=== PATIENT | female | born 1950 | race Caucasian/White ===

== ENCOUNTER 2017-10-26 06:55 | Inpatient (IN) | payer MEDICARE, SELFPAY ==
[2017-10-12 10:39] VITALS: BMI 42.4
[2017-10-26] VITALS (15 sets, daily range): BP systolic 113–138; BP diastolic 40–78; PULSE 66–88; RESP 8–18; TEMP 36–36.6; O2SAT 92–99; BMI 40.7
[2017-10-26] MEDS: LACTATED RINGERS 1,000 ML 42 ML IV ×2 (07:48→10:16)
--- NOTE | 2017-10-26 07:52 | PM.PREOP ---
Pre-operative Note Interval Note Pre-op Check: History & Physical Reviewed by Physician, Exam Performed and History & Physical exam performed today
--- NOTE | 2017-10-26 08:00 | DI.RAD.S_ITS ---
PROCEDURE: XR LUMBAR SPINE 2-3V INDICATIONS: L5-S1 TLIF TECHNIQUE: 2 views of the lumbar spine were acquired. COMPARISON: [facility], , L-SPINE 2-3 VIEWS, 04/28/2012, 9:00. [facility], , PELVIS 1 OR 2 VIEWS, 04/28/2012, 9:00. [facility], , L-SPINE 2-3 VIEWS, 04/26/2007, 9:58. [facility], , L-SPINE 2-3 VIEWS, 04/30/2016, 9:43. FINDINGS: Intra-operative image demonstrating posterior fixation from L3-S1. Due to technical limitations, fine detail evaluation is limited. Hardware appears grossly intact. Evaluation of alignment is limited. IMPRESSION: Limited intra-operative posterior fusion. Dictated by: Ute Hart M.D. on 10/26/2017 at 12:25 Approved by: Ute Hart M.D. on 10/26/2017 at 12:29
[2017-10-26] MEDS: CEFAZOLIN 2 GM/100 ML FROZ.PIGGY IV ×3 (08:04→23:54)
--- NOTE | 2017-10-26 08:53 | SUR.OPER ---
Prone on spine table, head in foam head support, padded chest and pelvic supports, gel pad at knees, lower legs supported by pillows; nipples, genitalia and toes free of pressure, arms secured on foam padded arm boards at <90 degrees abduction. Tape over blanket at thigh secured to table.
[2017-10-26] MEDS: BUPIVACAINE LIPOSOME 266 MG/20 ML VIAL INJ (09:03)
[2017-10-26] MEDS: BUPIVACAINE 0.25% W/ EPI VIAL 30 ML INJ (09:03)
--- NOTE | 2017-10-26 11:38 | P.OP_ITS ---
Operative Date/Time/Diagnoses Date of procedure: 10/26/17 Time of procedure: 08:29 Pre-op diagnosis: 1. Hx of L3-4, L4-5 TLIF 2. L5-S1 spondylosis with radiculopathy 3. L3-4, L4-5, L5-S1 spinal stenosis with radiculopathy 4. Possible non-union L3-4, L4-5 Post-op diagnosis: same Procedure & Clinicians Procedure: 1. L5-S1 posterolateral and posterior interbody fusion 2. L5-S1 posterior interbody cage placement 3. L3-4, L4-5 posterior segmental instrumentation removal 4. L3-4, L4-5 revision jaspreet-laminectomy with exploration of fusion 5. L3-4, L4-5, L5-S1 posterior segmental instrumentation with pedicle screw placement 6. L3-4, L4-5 posterolatearl fusion 7. [place] of bone marrow from iliac crest through a separate incision 8. Utilization of microsurgical technique and operating microscope Same procedure as scheduled: Yes Indications: Patient has been having chronic back pain and worsening lumbar radiculopathy. Patient had a L3-4, L4-5 fusion 18 months ago. She was doing well until about 6 months ago. Patient failed multiple conservative management with worsening pain weakness and numbness in her lower extremity. Patient has been having difficulty performing activity of daily living. After discussing risks benefits of treatment options, patient elected proceed with surgery. Surgeon: Danielle Ni Security Field Supervisor: Merary [place] Click Yes if Unassisted: No Anesthesia Type: General Operative Notes Closure Type: primary Specimen(s): none sent Applied: catheter Estimated Blood Loss (mL): 150 Blood products transfused: none Procedure in detail: Patient was seen in the preoperative area. Risks and benefits of the surgery was discussed with the patient. Informed consent was obtained from the patient and placed in the chart. Surgical site was marked. Patient was taken to the operative room. General anesthesia was administered. Prophylactic antibiotic was given to the patient less than 30 min before the incision was made. Patient was placed into a prone position on the Cesar table. Patient's back was then prepped and draped in the sterile fashion. Time- out was performed at this time. Using patient's previous scar incision was made over the L3-4 L4-5 L5-S1 interval on the left side. Fascia was incised in line with skin incision. Patient's previously placed hardware over the L3-4 L4-5 level was identified by dissecting down to the level the hardware using a Bovie and a Balderas. The locking caps which was removed using globus screwdriver. The locking bryon was then removed from the tulips of the pedicle screws using a Huber. The pedicle screws were then removed using the screwdriver. The screws were found to have good purchase. The Globus and MARS retractors was then placed into the wound and docked onto the L5 lamina using C-arm guidance. Using microsurgical technique and operating microscope a laminectomy facetectomy was performed by removing the L5 lamina and the L5-S1 facet. The disc space at L5-S1 level was identified next. And a total diskectomy was performed at L5-S1 level. The endplates were decorticated using a rasp and shaver. The total diskectomy and decortication was performed at L5-S1 level in order to to accomplish a L5-S1 fusion. The local bone from the laminectomy and facetectomy was saved for local bone grafting. After the total diskectomy and decortication was completed, Globus viacell bone graft material was combined with local bone that was harvested earlier. At this time, a separate skin is incision was made over the iliac crest. A Jamshidi needle was inserted into the iliac crest through a separate skin incision. 5 cc of bone marrow aspiration was obtained through the separate skin incision using a Jamshidi needle from the iliac crest. The bone marrow aspiration was combined with local bone and the via cell bone grafting material. The bone grafting material was placed into the L5-S1 interbody space along with a expandable cage. The cage was expanded to its maximum height using the torque limiting screwdriver. The MARs retractor was then repositioned over the L3 and L4 lamina on the left side. A revision hemilaminectomy was performed on the left side by removing epidural scar tissue, additional lamina, and ligamentum flavum in order to decompress the lateral recess and also exploring the fusion mass. Upon stressing the fusion mass at L3-4 L4-5 level, there was visible motion confirming a pseudoarthrosis. A decision was made to perform posterolateral fusion at L3-4 L4-5 level. At this time a mirror image incision was made on the right side. The fascia was incised in line with the skin incision. Patient's previously placed hardware on the left side was then removed in the same fashion as it was on the left side. Globus MARS retractor was inserted and docked onto the L3-4 L4-5 L5-S1 posterolateral gutter. Using the power drill, posterior-lateral decortication was performed at L3-4 L4-5 L5-S1 level until bleeding cortical bone was identified. The remaining bone grafting material was placed into the L3-4-L4-5 L5-S1 posterior lateral gutter he order to accomplish posterolateral fusion at the L3-4-L4-5 L5-S1 level. Using the double C-arm technique, pedicle screws were placed into the L3, L4, L5 and S1 pedicles bilaterally. This was done by placing the Jamshidi needle into the pedicles, then placing the guidewires over the Jamshidi needle, and finally placing the cannulated screws over the guidewires bilaterally. After the pedicle screws were placed, 2 titanium rods was locked into the heads of the pedicle screws using locking caps and torque limiting screwdriver. Total 8 pedicle screws were placed. After all the hardware was placed, and confirmed with AP and lateral C-arm imaging, the wound was then irrigated with sterile normal saline and packed with Ray-Jen gauze for 3 min to accomplish hemostasis. After the gauze was removed the deep fascia was closed with #1 Vicryl suture. The subcutaneous layer was closed with 2-0 Vicryl. The skin was closed with skin polo. Patient tolerated the procedure well. There were no complications. Complications: none Condition: stable Disposition: Acute Care Plan for aftercare: Admit to inpatient hospital
[2017-10-26] MEDS: HYDROMORPHONE 2 MG INJ 0.5 MG IV ×2 (11:43→11:48)
--- NOTE | 2017-10-26 12:02 | SUR.PHASEI ---
stable pacu stay report called to marilee steele, no nausea, dressing remained c/d/i.
[2017-10-26] MEDS: SODIUM CHLORIDE 0.9% 1,000 ML 100 ML IV ×2 (12:37→22:08)
--- NOTE | 2017-10-26 12:45 | PC.NURSE ---
Pt to floor 1220, alert, oriented rates back pain 5/10. CMS+ bulky dressing to back intact, scd's placed. Denies nausea, taking fluids, moya patent.
[2017-10-26] MEDS: OXYCODONE IR 5 MG TABLET 10 MG PO ×3 (13:09→23:58)
--- NOTE | 2017-10-26 14:50 | PT.IIE ---
Current Diagnoses Other spondylosis with radiculopathy, lumbar region (10/26/17) Spinal stenosis, lumbar region without neurogenic claudication (10/26/17) Arthrodesis status (10/26/17) Surgery Performed Operation Date: 10/26/17 07:45 Actual Procedures p L5-S1 TLIF, L3-4,L4-5 Hardware Removal & L3-4,L4-5,L5-S1 PSF w/Instru - Danielle Ni MD Surgical History (Last Updated 10/12/17 @ 11:27 by Irasema Kiser, RN) History of colonoscopy (Acute) History of tonsillectomy and adenoidectomy (Acute) Previous back surgery (Acute ~2016) Medical History (Last Updated 10/12/17 @ 11:27 by Irasema Kiser, FLORENCIA) Anal fissure (Acute) Bruises easily (Acute) Condyloma (Acute) Hepatitis C (Acute) Impaired vision (Acute) Roro-implantitis, dental (Acute) Postmenopausal (Acute) Physical Therapy Inpatient Evaluation/Re-Eval M1 PT/OT-IP Prior Functional Status Start: 10/26/17 17:31 Freq: NEEDED Status: Active Protocol: Document 10/26/17 14:50 AB (Rec: 10/26/17 17:43 AB [id number]) Medical Review Prior Functional Status Medical History Reviewed Yes Communication able to make needs known Mobility and Gait pt stated that she is modified independent with all mobilities and ambulated without AD indoors but uses SPC outdoors/uneven surfaces. Social History Household Members spouse Living Arrangements House Number of Floors (Floors) One Floor Number of Stairs To Enter/Railing? 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 Employment Status Retired Additional Social History Comment has 1 step to get into bed; has a writing manager but stated she needs a new one; stated that she can put a shower chair in her tub pt also will borrow FWW from the [employer] M2 PT-IP Current Condition Start: 10/26/17 17:31 Freq: NEEDED Status: Active Protocol: Document 10/26/17 14:50 AB (Rec: 10/26/17 17:43 AB [id number]) Physical Therapy Current Condition Current Condition Evaluation Date 10/26/17 Treatment Diagnosis s/p TLIF and laminectomy; difficulty in walking Onset Date 10/26/17 Precautions Lumbar Precautions Log Roll No Twisting Limit Bending Lifting Restriction of 10 lbs Gait Belt above Incisional Area M3 PT-IP Subjective Start: 10/26/17 17:31 Freq: NEEDED Status: Active Protocol: Document 10/26/17 14:50 AB (Rec: 10/26/17 17:43 AB [id number]) Subjective Physical Therapy Visit Type Type Initial Evaluation Visit Start Time 14:50 Visit Stop Time 15:55 Total Visit Minutes 45 Notes pt initially refusing but agreed to do therapy after a few minutes; checked back on pt and agreed to get up Number of INSPECTOR SHELLS Visits 0 Therapy Pain Assessment Pain When Pain Assessed At Rest Pain Present Pain Present Pain Reported Location Back Intensity 6 Scale Used Numeric (1 - 10) Pain Management Techniques Re-positioning Timing of Activity with Medications M4 PT-IP Mobility and Gait Start: 10/26/17 17:31 Freq: NEEDED Status: Active Protocol: Document 10/26/17 14:50 AB (Rec: 10/26/17 17:43 AB [id number]) PT-Bed Mobility Assessment Rolling Type of Rolling Roll to Left Level of Assist Moderate Assistance Supine to Sit Supine to Sit Maximum Assistance 1 Person Assistance Sit to Supine Sit to Supine Minimal Assistance PT-Transfer Assessment Sit to and From Stand Sit to and from Stand Minimal Assistance Equipment Transfer Assistive Device Gait Belt Front Wheeled Walker Orthotic/Prosthetic Devices or Brace: No Gait Assessment Gait Gait Assistance Required: Minimum Assistance Distance (Feet) (feet) 100 Able to Maintain Weight Bearing Status Yes During Gait Assistive Devices Assistive Device Gait Belt Front Wheeled Walker Orthotic/Prosthetic Devices or Brace: No Gait Deviations General Gait Pattern Decreased Stride Length Decreased Feet Clearance Factors Limiting Gait Function Factors Limiting Gait Function Decreased Activity Tolerance Decreased Strength Pain Poor Balance Poor Safety Awareness PT-Balance Assessment Sitting Balance and Reactions Static Sitting Balance Ability Good Dynamic Sitting Balance Ability Good Standing Balance and Reactions Static Standing Balance Ability Fair Dynamic Standing Balance Ability Fair Device Used FWW M5 PT-IP Objective Assessments Start: 10/26/17 17:31 Freq: NEEDED Status: Active Protocol: Document 10/26/17 14:50 AB (Rec: 10/26/17 17:43 AB [id number]) Orientation Orientation/Cognition Level of Alertness Alert Orientation Name Age Birthday Month Date Year Day of Week Place Situation Safety Awareness Decreased Safety Awareness Memory Description Short Term Impaired Gross Range of Motion Lower Extremity ROM Assessment Within Functional Limits Strength Lower Extremity Strength Assessment Within Functional Limits M6 PT-IP Treatment Start: 10/26/17 17:31 Freq: NEEDED Status: Active Protocol: Document 10/26/17 14:50 AB (Rec: 10/26/17 17:43 AB [id number]) Physical Therapy Treatment Education Education Provided Precautions Weight Bearing Status Post-Op Packet Safety M7 PT-IP Assessment and Plan Start: 10/26/17 17:31 Freq: NEEDED Status: Active Protocol: Document 10/26/17 14:50 AB (Rec: 10/26/17 17:43 AB [id number]) PT Summary Assessment and Plan Potential Rehabilitation Potential Good Status of Condition at Evaluation Stable Summary Impairments Pain ROM Strength Balance Coordination Sensation Tone Cognition Bed Mobility Transfers Gait Activity Tolerance Assessment Summary pt requires max A with bed mobility but is doing well with ambulation. pt plans to go home with spouse to assist her. pt will likely improve during hospital stay and caregiver training, stair training will be conducted. Goals Bed Mobility Goal Standby Assistance Transfer Goal Standby Assistance Front Wheeled Walker Gait Goal Standby Assistance Front Wheel Walker Gait Distance 150 Other Goals uup/down 3 steps without rail using SPC Days to Meet Goals 3 Frequency of Treatment Frequency Of Treatment Twice a Day Treatment Plan Physical Therapy Treatment Plan Bed Mobility Training Transfer Training Gait Training Therapeutic Exercise Balance Retraining Post Op Education Discharge Planning Hot or Cold Pack Neuromuscular Re-ed Coordination Retraining Manual Therapy Recommendations To Nursing Amount of Assist Needed 1 Person Assist Discharge Recommendations PT Discharge Recommendations Home with Assistance
[2017-10-26] MEDS: HYDROMORPHONE 0.5 MG INJ IV ×3 (14:54→21:58)
--- NOTE | 2017-10-26 17:09 | PC.NURSE ---
[place]ba is Ox3, ambulated in hallway with PT assist. After back into bed, reported pain starting to go up again, rating at 9/10. Assisted her to reposition in bed with knees elevated by 2 pillows & bed controls. Then discussed pain med options as it was too early for more IV Dilaudid, medicated with 2 tabs Oxycodone. She is smiling, conversive with staff. Said this is so much better than last time -- I was in terrible pain. Sitting up eating meal now. I instructed her to call me if Oxycodone not effective, she agrees to this plan.
[2017-10-26] MEDS: DOCUSATE 100 MG CAPSULE PO (21:58)
[2017-10-26] MEDS: SENNOSIDES 8.6 MG TABLET 17.2 MG PO (21:58)
[2017-10-26] MEDS: MAGNESIUM OXIDE 400 MG TABLET PO (21:58)
[2017-10-26] MEDS: hydrOXYzine pamoate 25 MG CAPSULE PO (23:58)
--- NOTE | 2017-10-27 00:20 | PC.NURSE ---
Addendum entered by Ember Garber R.N. 10/27/17 05:47: Patient slept entire night. States pain is 7/10 this morning so medicated with Oxycodone + Vistaril but continues to decline ice pack. Repositioning self. Refused to have SCD's off as per protocol. Original Note: Alert and oriented and very talkative. Breath sounds CTA with RA sat of 96%. HRR. Denies nausea. BT present and states she has been passing flatus. Indwelling catheter is patent with clear yellow urine in bag. Is able to turn self but prefers to lie on back due to bone spurs. Dressing to back is CDI. Does complain of 6/10 pain so medicated with Oxycodone + Vistaril but declined offer of ice pack. CMS intact except for chronic neuropathy in left lateral 3 toes. Trace bilateral LE edema which she states is also chronic. Wearing bilateral foot SCD's. Fall risk score is high and bed alarm is activated.
[2017-10-27 05:00] VITALS: BP 130/64; PULSE 80; RESP 18; TEMP 36.6; O2SAT 94
[2017-10-27 05:34] LABS: Hematocrit 35.2 % (36-46); Hemoglobin 12.1 g/dL (12.0-16.0)
[2017-10-27] MEDS: OXYCODONE IR 5 MG TABLET 10 MG PO (05:43)
[2017-10-27] MEDS: hydrOXYzine pamoate 25 MG CAPSULE PO ×3 (05:43→22:42)
[2017-10-27 07:15] VITALS: BP 111/53; PULSE 86; RESP 16; TEMP 36.6; O2SAT 98
--- NOTE | 2017-10-27 08:18 | P.PN_ITS ---
Subjective Date Patient Seen: 10/27/17 Time Patient Seen: 08:18 Interval history: POD #1 s/p L3-4, L4-5 HWR and L5-S1 TLIF with Dr. Ni. She has had issues with pain control. Has had no previous issues taking steroids besides flushing. Prior to surgery she was taking Oxycodone 2.5 mg daily. She has been ambulating in her room. She has a [place] in place. Complains of left- sided pain. Exam Vital Signs (past 8 hours): - 10/27/17 05:00 Temperature 97.9 F Pulse Rate 80 Respiratory Rate 18 Blood Pressure 130/64 H Pulse Oximetry 94 Oxygen Delivery Method Room Air Oxygen Flow Rate 0 Narrative Exam Narrative: Patient lying in bed in no acute distress. She is alert and oriented x3. She is able to actively dorsiflex plantar flex. Sensation intact to light touch throughout bilateral lower extremities. Calves are soft, compressible, nontender bilaterally. Objective Labs Result Diagrams: 10/27/17 05:16 Labs: Laboratory Results - last 24 hr 10/27/17 05:16 Hgb 12.1 Hct 35.2 L Assessment & Plan Post-op (1) S/P lumbar fusion: Current Visit: Yes Status: Acute Postoperative Procedures Operation Date: 10/26/17 07:45 Actual Procedures Side Surgeon p L5-S1 TLIF, L3-4,L4-5 Hardware Removal & L3-4,L4-5,L5-S1 PSF w/Instru Danielle Ni MD POD #1 s/p L3-4, L4-5 HWR and L5-S1 TLIF with Dr. Ni. Will start on Decadron 10 mg one time dose today. Changed pain medication to oxycodone 10 mg for moderate pain, and oxycodone 15 mg for severe pain. She is requesting her supplement CoQ10, I placed an order but unsure if pharmacy will be able to supply this for her, she mentioned she can get some if not. Will DC [place] today as she is mobilizing. Plan to discharge home in next 1-2 days once mobilizing safely with adequate pain control. Time Spent With Patient less than 15 minutes Quality VTE Deep Vein Thrombosis/Pulmonary Embolism Present on Admission: No
[2017-10-27] MEDS: DEXAMETHASONE 4 MG TABLET 10 MG PO (09:01)
[2017-10-27] MEDS: FISH OIL 1,000 MG CAPSULE 1000 MG PO (09:01)
[2017-10-27] MEDS: DOCUSATE 100 MG CAPSULE PO ×2 (09:01→19:25)
[2017-10-27] MEDS: ACETAMINOPHEN 325 MG TABLET PO ×2 (09:01→12:13)
[2017-10-27] MEDS: OXYCODONE IR 5 MG TABLET 15 MG PO ×5 (09:01→22:42)
[2017-10-27] MEDS: SODIUM CHLORIDE 0.9% FLUSH 10 ML IV (09:05)
--- NOTE | 2017-10-27 09:20 | PT.IPTN ---
Current Diagnoses Other spondylosis with radiculopathy, lumbar region (10/26/17) Spinal stenosis, lumbar region without neurogenic claudication (10/26/17) Arthrodesis status (10/26/17) Surgery Performed Operation Date: 10/26/17 07:45 Actual Procedures p L5-S1 TLIF, L3-4,L4-5 Hardware Removal & L3-4,L4-5,L5-S1 PSF w/Instru - Danielle Ni MD Physical Therapy Treatment Note M2 PT-IP Current Condition Start: 10/26/17 17:31 Freq: NEEDED Status: Active Protocol: Document 10/26/17 14:50 AB (Rec: 10/26/17 17:43 AB [id number]) Physical Therapy Current Condition Current Condition Evaluation Date 10/26/17 Treatment Diagnosis s/p TLIF and laminectomy; difficulty in walking Onset Date 10/26/17 Precautions Lumbar Precautions Log Roll No Twisting Limit Bending Lifting Restriction of 10 lbs Gait Belt above Incisional Area M3 PT-IP Subjective Start: 10/26/17 17:31 Freq: NEEDED Status: Active Protocol: Document 10/27/17 09:20 AB (Rec: 10/27/17 11:59 AB [id number]) Subjective Physical Therapy Visit Type Type Treatment Note Visit Start Time 09:20 Visit Stop Time 09:48 Total Visit Minutes 28 Number of DIRECTOR HOSPICE OPERATIONS Visits 0 Physical Therapy Visit Comments Patient Comments pt c/o increase back pain Therapy Pain Assessment Pain When Pain Assessed At Rest Pain Present Pain Present Pain Reported Location Back Intensity 8 Scale Used Numeric (1 - 10) Pain Management Techniques Apply Cold Timing of Activity with Medications M4 PT-IP Mobility and Gait Start: 10/26/17 17:31 Freq: NEEDED Status: Active Protocol: Document 10/27/17 09:20 AB (Rec: 10/27/17 11:59 AB [id number]) PT-Bed Mobility Assessment Rolling Type of Rolling Log Rolling Level of Assist Standby Assistance Supine to Sit Supine to Sit Standby Assistance 1 Person Assistance Bedrails Sit to Supine Sit to Supine Standby Assistance 1 Person Assistance Bedrails PT-Transfer Assessment Sit to and From Stand Sit to and from Stand Contact Guard Assistance Equipment Transfer Assistive Device Gait Belt Front Wheeled Walker Orthotic/Prosthetic Devices or Brace: No Comments Mobility Comments pt ambulated towards the sink using FWW CGA and was able to maintain standing using FWW for support SBA while doing grooming Gait Assessment Gait Gait Assistance Required: Contact Guard Assist Distance (Feet) (feet) 100 Able to Maintain Weight Bearing Status Yes During Gait Assistive Devices Assistive Device Gait Belt Front Wheeled Walker Orthotic/Prosthetic Devices or Brace: No Gait Deviations General Gait Pattern Decreased Stride Length Decreased Feet Clearance Factors Limiting Gait Function Factors Limiting Gait Function Decreased Activity Tolerance Decreased Strength Pain Poor Balance Poor Safety Awareness M5 PT-IP Objective Assessments Start: 10/26/17 17:31 Freq: NEEDED Status: Active Protocol: Document 10/26/17 14:50 AB (Rec: 10/26/17 17:43 AB [id number]) Orientation Orientation/Cognition Level of Alertness Alert Orientation Name Age Birthday Month Date Year Day of Week Place Situation Safety Awareness Decreased Safety Awareness Memory Description Short Term Impaired Gross Range of Motion Lower Extremity ROM Assessment Within Functional Limits Strength Lower Extremity Strength Assessment Within Functional Limits M6 PT-IP Treatment Start: 10/26/17 17:31 Freq: NEEDED Status: Active Protocol: Document 10/27/17 09:20 AB (Rec: 10/27/17 11:59 AB [id number]) Physical Therapy Treatment Education Education Provided Precautions Weight Bearing Status Post-Op Packet Safety M7 PT-IP Assessment and Plan Start: 10/26/17 17:31 Freq: NEEDED Status: Active Protocol: Document 10/27/17 09:20 AB (Rec: 10/27/17 11:59 AB [id number]) PT Summary Assessment and Plan Potential Rehabilitation Potential Good Summary Impairments Pain ROM Strength Balance Coordination Sensation Tone Cognition Bed Mobility Transfers Gait Activity Tolerance Progress Towards Goals Progressing Toward Goals Assessment Summary pt c/o increase pain today. pt progressing with mobility and spouse will assist pt at home. Pt refused to do stair climbing this morning but will try to attempt this afternoon . Goals Bed Mobility Goal Standby Assistance Transfer Goal Standby Assistance Front Wheeled Walker Gait Goal Standby Assistance Front Wheel Walker Gait Distance 150 Other Goals up/down 3 steps without rail using SPC. Days to Meet Goals 3 Frequency of Treatment Frequency Of Treatment Twice a Day Treatment Plan Physical Therapy Treatment Plan Bed Mobility Training Transfer Training Gait Training Therapeutic Exercise Balance Retraining Post Op Education Discharge Planning Hot or Cold Pack Neuromuscular Re-ed Coordination Retraining Manual Therapy Recommendations To Nursing Amount of Assist Needed 1 Person Assist Discharge Recommendations PT Discharge Recommendations Home with Assistance
[2017-10-27 11:20] VITALS: BP 124/59; PULSE 76; RESP 18; TEMP 37; O2SAT 99
--- NOTE | 2017-10-27 11:38 | OT.IP.EVAL ---
Current Diagnoses Other spondylosis with radiculopathy, lumbar region (10/26/17) Spinal stenosis, lumbar region without neurogenic claudication (10/26/17) Arthrodesis status (10/26/17) Surgery Performed Operation Date: 10/26/17 07:45 Actual Procedures p L5-S1 TLIF, L3-4,L4-5 Hardware Removal & L3-4,L4-5,L5-S1 PSF w/Maria De Jesus Ni MD Past Medical History (Last Updated 10/12/17 @ 11:27 by Irasema Kiser, RN) Anal fissure (Acute) Bruises easily (Acute) Condyloma (Acute) Hepatitis C (Acute) Impaired vision (Acute) Roro-implantitis, dental (Acute) Postmenopausal (Acute) Surgical History (Last Updated 10/12/17 @ 11:27 by Irasema Kiser, RN) History of colonoscopy (Acute) History of tonsillectomy and adenoidectomy (Acute) Previous back surgery (Acute ~2016) Occupational Therapy Inpatient Evaluation/Re-Eval M1 PT/OT-IP Prior Functional Status Start: 10/26/17 17:31 Freq: NEEDED Status: Active Protocol: Document 10/26/17 14:50 AB (Rec: 10/26/17 17:43 AB [id number]) Medical Review Prior Functional Status Medical History Reviewed Yes Communication able to make needs known Mobility and Gait pt stated that she is modified independent with all mobilities and ambulated without AD indoors but uses SPC outdoors/uneven surfaces. Social History Household Members spouse Living Arrangements House Number of Floors (Floors) One Floor Number of Stairs To Enter/Railing? 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 Sock Aid Employment Status Retired Additional Social History Comment has 1 step to get into bed; has a manual arts teacher but stated she needs a new one; stated that she can put a shower chair in her tub pt also will borrow FWW from the [employer] M1 PT/OT-IP Prior Functional Status Start: 10/27/17 11:15 Freq: NEEDED Status: Active Protocol: Document 10/27/17 11:16 [facility] (Rec: 10/27/17 11:37 [facility] [id number]) Medical Review Prior Functional Status Medical History Reviewed Yes Diet/Fluid Consistency Regular Thin Liquids Communication able to make needs known Mobility and Gait pt stated that she is modified independent with all mobilities and ambulated without AD indoors but uses SPC outdoors/uneven surfaces. Activities of Daily Living and IADL's Pt states having trouble with pericare needs and difficulty to use toilet aid/sock aid at home. Social History Household Members spouse Living Arrangements House Number of Floors (Floors) One Floor Number of Stairs To Enter/Railing? 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 Sock Aid Employment Status Retired Additional Social History Comment has 1 step to get into bed; has a manual arts teacher but stated she needs a new one; stated that she can put a shower chair in her tub pt also will borrow FWW from the [employer] M2 OT-IP Current Condition Start: 10/27/17 11:15 Freq: Status: Active Protocol: Document 10/27/17 11:16 [facility] (Rec: 10/27/17 11:37 [facility] [id number]) Occupational Therapy Current Condition Current Condition Evaluation Date 10/27/17 Treatment Diagnosis Lumbar stenosis Diagnosis Onset Date 10/26/17 Post Operative Precautions Lumbar Precautions Log Roll No Twisting Limit Bending Lifting Restriction of 10 lbs Gait Belt above Incisional Area Weight Bearing Status Weight Bearing Status Weight Bear as Tolerated M3 OT- IP Subjective and Pain Start: 10/27/17 11:15 Freq: Status: Active Protocol: Document 10/27/17 11:16 [facility] (Rec: 10/27/17 11:37 [facility] [id number]) OT- Subjective Occupational Therapy Visit Type Type Initial Evaluation Visit Start Time 10:05 Visit Stop Time 10:40 Total Visit Minutes 35 Occupational Therapy Visit Comments Patient Comments Pt cooperative but anxious about going home tomorrow. OT Pain Assessment Pain When Pain Assessed At Rest Pain Present Pain Present Pain Reported Location Back Intensity 7 Scale Used Numeric (1 - 10) Pain Behaviors Facial Grimacing Holding Area Management Techniques Timing of Activity with Medications M4 OT- IP ADL's Start: 10/27/17 11:15 Freq: Status: Active Protocol: Document 10/27/17 11:16 [facility] (Rec: 10/27/17 11:37 [facility] [id number]) OT FNI-Vedj-Kkxchfq General Evaluation Self-Feeding Ability Independent OT ADL-Grooming General Evaluation Grooming Ability Independent Areas Needing Assistance Retrieving/Set-up of Grooming Items Comments OT Grooming Comments SBA with FWW at sink, vc to incorporate back precautions for ADl's. OT ADL-Dressing General Eval Lower Body Dressing Ability Maximum Assistance Areas Needing Assistance Retrieving/Set-up of Clothing Underpants/Brief Shoes Comments OT Dressing Comments Pt issued manual arts teacher and able to practice AED for socks and still needing MIN vc. OT ADL-Toileting General Evaluation Toileting Ability Standby Assistance Devices Toileting Assistive Devices Grab Bars Comments OT Toileting Comments Pt able to do own pericare needs while standing, however will benefit from toilet tong/ aid. OT ADL-Bathing Comments OT Bathing Comments Not ready at this time. M6 OT- IP Functional Cognition Start: 10/27/17 11:15 Freq: Status: Active Protocol: Document 10/27/17 11:16 [facility] (Rec: 10/27/17 11:37 [facility] [id number]) Cognitive Factors Limiting Selfcare Function Cognitive Ability Level of Alertness Alert Patient Orientation Name Place Situation Attention Span Ability Capable of Focused Attention Capable of Sustained Attention Ability to Follow Commands Able to Follow One Step Commands Memory Description Short Term Impaired Safety Awareness Decreased Recall of Precautions Decreased Ability to Apply Precautions Problem Solving Ability Needs Assist to Identify Solutions Cognitive Comments Cognitive Assessment Comments Pt not able to recall all precautions and needing vc to incorporate during ADl needs. OT- Vision and Hearing OT- Hearing Assessment OT- Hearing Assessment WFL M7 OT- IP Mobility and Balance Start: 10/27/17 11:15 Freq: Status: Active Protocol: Document 10/27/17 11:16 [facility] (Rec: 10/27/17 11:37 [facility] [id number]) OT- Bed Mobility Assessment Rolling Type of Rolling Roll to Left Level of Assistance Standby Assistance Supine to Sit Supine to Sit Assist Standby Assistance Sit to Supine Sit to Supine Assist Standby Assistance OT-Transfer Assessment Sit to and From Stand Sit to and from Stand Contact Guard Assistance Transfers Transfer Ability Standby Assistance Contact Guard Assistance Technique Transfer Destination Bed Toilet Transfer Technique Stand Step Pivot Devices Transfer Assistive Devices Gait Belt Standard Walker Comments Mobility Comments Pt heavy use of bed rail to get up and down from the bed, reminders not to twist when pt gets distracted to reach for items. Switched out FWW to bariatric to prevent to hitting her hips, however pt states at home doorways too narrow and will use standard FWW at home. OT- Gait Assessment Gait Gait Assistance Required: Standby Assistance Contact Guard Assist Able to Maintain Weight Bearing Status Yes During Gait Assistive Devices Assistive Device Gait Belt Front Wheeled Walker Comments Gait Ability Comments Pt states to borrow fww from [employer]. OT- Balance Assessment Sitting Balance and Reactions Static Sitting Balance Ability Normal Dynamic Sitting Balance Ability Normal Standing Balance and Reactions Static Standing Balance Ability Good Dynamic Standing Balance Ability Fair M8 OT- IP Objective Assessments Start: 10/27/17 11:15 Freq: Status: Active Protocol: Document 10/27/17 11:16 [facility] (Rec: 10/27/17 11:37 [facility] [id number]) OT Gross Range of Motion Upper Extremity Range of Motion Assessment Within Functional Limits OT Strength Upper Extremity Strength Assessment Within Functional Limits OT-Muscle Tone Assessment Muscle Tone WNL Yes M9 OT- IP Assessment and Plan Start: 10/27/17 11:15 Freq: Status: Active Protocol: Document 10/27/17 11:16 [facility] (Rec: 10/27/17 11:37 [facility] [id number]) OT Summary Assessment and Plan Potential Rehabilitation Potential Excellent Analytic Complexity at Evaluation Low Summary OT Impairments Pain Balance Functional Cognition Dressing Bathing Shower Transfers Progress Towards Goals Progressing Toward Goals Assessment Summary Pt doing well and has supportive to assist at home. Pt still anxious about going home and states still in lots of pain. Goals Grooming Goal Independent Dressing Goal Minimal Assistance Toileting Goal Standby Assistance Bathing Goal Minimal Assistance Toilet Transfer Goal Independent Shower Transfer Goal Standby Assistance Patient/Caregiver Education Goal Demonstrate Post-Op Precautions Demonstrate Energy Conservation and Pacing Caregiver Independent Assisting Patient Frequency of Treatment Frequency Of Treatment Once a Day Treatment Plan OT Treatment Plan ADL Training Functional Cognition Training Functional Mobility Patient/Family Education Discharge Planning Discharge Recommendations OT Discharge Recommendations Home with Assistance Home Equipment Needs FWW
--- NOTE | 2017-10-27 12:40 | PT.IPTN ---
Current Diagnoses Other spondylosis with radiculopathy, lumbar region (10/26/17) Spinal stenosis, lumbar region without neurogenic claudication (10/26/17) Arthrodesis status (10/26/17) Surgery Performed Operation Date: 10/26/17 07:45 Actual Procedures p L5-S1 TLIF, L3-4,L4-5 Hardware Removal & L3-4,L4-5,L5-S1 PSF w/Instru - Danielle Ni MD Physical Therapy Treatment Note M2 PT-IP Current Condition Start: 10/26/17 17:31 Freq: NEEDED Status: Active Protocol: Document 10/27/17 12:40 [facility] (Rec: 10/27/17 17:50 [facility] [id number]) Physical Therapy Current Condition Current Condition Evaluation Date 10/26/17 Treatment Diagnosis s/p TLIF and laminectomy; difficulty in walking Onset Date 10/26/17 Precautions Lumbar Precautions Log Roll No Twisting Limit Bending Lifting Restriction of 10 lbs Gait Belt above Incisional Area Weight Bearing Status Weight Bearing Status Weight Bear as Tolerated M3 PT-IP Subjective Start: 10/26/17 17:31 Freq: NEEDED Status: Active Protocol: Document 10/27/17 12:40 RCC (Rec: 10/27/17 17:50 [facility] [email or web address]) Subjective Physical Therapy Visit Type Type Treatment Note Visit Start Time 12:30 Visit Stop Time 12:40 Total Visit Minutes 10 Number of SOLAR ENERGY SYSTEMS ENGINEER Visits 0 Physical Therapy Visit Comments Patient Comments Pt requested to get to BR. M4 PT-IP Mobility and Gait Start: 10/26/17 17:31 Freq: NEEDED Status: Active Protocol: Document 10/27/17 12:40 [facility] (Rec: 10/27/17 17:50 [facility] [id number]) PT-Bed Mobility Assessment Rolling Type of Rolling Log Rolling Level of Assist Standby Assistance Supine to Sit Supine to Sit Standby Assistance Bedrails Scooting Scooting to Edge of Bed Independent PT-Transfer Assessment Sit to and From Stand Sit to and from Stand Standby Assistance 1 Person Assistance Use of Upper Extremities Equipment Transfer Assistive Device Gait Belt Front Wheeled Walker Transfers Transfer Destination Chair Toilet Transfer Technique Stand Step Pivot Transfer Ability Level of Assist Standby Assistance Gait Assessment Gait Gait Assistance Required: Standby Assistance Distance (Feet) (feet) 15 Assistive Devices Assistive Device Gait Belt Front Wheeled Walker Gait Deviations General Gait Pattern Decreased Stride Length Decreased Feet Clearance Factors Limiting Gait Function Factors Limiting Gait Function Decreased Strength Pain Comments Gait Comments VC for safety with turning using FWW to toilet and chair. M5 PT-IP Objective Assessments Start: 10/26/17 17:31 Freq: NEEDED Status: Active Protocol: Document 10/26/17 14:50 AB (Rec: 10/26/17 17:43 AB [id number]) Orientation Orientation/Cognition Level of Alertness Alert Orientation Name Age Birthday Month Date Year Day of Week Place Situation Safety Awareness Decreased Safety Awareness Memory Description Short Term Impaired Gross Range of Motion Lower Extremity ROM Assessment Within Functional Limits Strength Lower Extremity Strength Assessment Within Functional Limits M6 PT-IP Treatment Start: 10/26/17 17:31 Freq: NEEDED Status: Active Protocol: Document 10/27/17 12:40 RCC (Rec: 10/27/17 17:50 RCC [email or web address]) Physical Therapy Treatment Education Education Provided Precautions Safety M7 PT-IP Assessment and Plan Start: 10/26/17 17:31 Freq: NEEDED Status: Active Protocol: Document 10/27/17 12:40 RCC (Rec: 10/27/17 17:50 RCC [email or web address]) PT Summary Assessment and Plan Summary Progress Towards Goals Progressing Toward Goals Assessment Summary POD #1. Pt tolerated getting OOB and to BR with SBA and a FWW. Pt will need to progress her gait tolerance and perform stairs prior to d/c, but likely to be able to d/c home unless pain becomes intolerable. Goals Bed Mobility Goal Standby Assistance Transfer Goal Standby Assistance Front Wheeled Walker Gait Goal Standby Assistance Front Wheel Walker Gait Distance 150 Other Goals up/down 3 steps without rail using SPC. Days to Meet Goals 3 Frequency of Treatment Frequency Of Treatment Twice a Day Treatment Plan Other Recommendations and Next Treatment gait, stair training, bed Focus mobility without bed rail, CG training. Recommendations To Nursing Amount of Assist Needed 1 Person Assist Discharge Recommendations PT Discharge Recommendations Home with Assistance
--- NOTE | 2017-10-27 14:58 | PC.NURSE ---
1000 moya cath dcd w/o diff. 1430 Pt has been oob, BRP, voiding w/o diff. Uses walker, Pt has steady even gait, taking PO pain meds approx Q3 for pain management. Pt follows inst for safe ambulation, ,movement.
[2017-10-27 15:40] VITALS: BP 123/71; PULSE 75; RESP 20; TEMP 36.6; O2SAT 99
--- NOTE | 2017-10-27 16:44 | PC.NURSE ---
Patient is A&O x3, pleasant and cooperative w/ staff and able to make needs known when nec. Patient was out of bed to use BR, patient gets self out of bed and ambulates extremely well given begin POD #2 from surg. Pain rated 57/10 w/ movement and not tolerable and at rest 5-6/10. TX given per JUN orders. Patient is wishing to rest prior to dinner and company arriving, sister from [place] called to check on patient. Patient aware of call. CMS intact, PP +, bilat. feet appear to be puffy but patient states this is baseline. DRG. to lumbar is bulky but CDI. call light w/ in reach, bed in low pos. Patient uses call light with all needs.
[2017-10-27] MEDS: SENNOSIDES 8.6 MG TABLET 17.2 MG PO (19:25)
[2017-10-27 21:05] VITALS: BP 137/57; PULSE 70; RESP 18; TEMP 36.6; O2SAT 97
[2017-10-28 00:05] VITALS: BP 151/93; PULSE 77; RESP 18; TEMP 36.4; O2SAT 97
--- NOTE | 2017-10-28 00:22 | PC.NURSE ---
Addendum entered by Ember Garber R.N. 10/28/17 06:06: Requested not to be awakened for pain meds and is currently asleep. Original Note: Addendum entered by Ember Garber R.N. 10/28/17 01:51: Medicated with Oxycodone 15mg at 0130 for 6/10 back pain. Original Note: Addendum entered by Ember Garber R.N. 10/28/17 01:50: Original Note: Patient is alert and oriented and extremely talkative. Breath sounds CTA with RA sat of 97%. HRR. Denies nausea. BT hypoactive but is passing flatus. Denies dysuria, frequency or incontinence but states she has chronic urgency. Is able to turn self in bed and was able to get in/out of bed independently and walked to bathroom with SBA + walker. Dressing to back is CDI. States pain is currently 4-5/10 and tolerable but wants to be awakened tonight when pain meds are due. Declines ice pack. States she still is feeling shaking when up walking and is concerned about being discharged too soon. Trace bilateral LE which is chronic. Wearing foot SCD's. Fall risk score remains high and bed alarm activated. CMS intact.
[2017-10-28] MEDS: OXYCODONE IR 5 MG TABLET 15 MG PO ×6 (01:35→22:51)
[2017-10-28] MEDS: hydrOXYzine pamoate 25 MG CAPSULE PO ×3 (02:39→22:51)
[2017-10-28 07:10] VITALS: BP 122/63; PULSE 64; RESP 16; TEMP 36.9; O2SAT 98
[2017-10-28] MEDS: ACETAMINOPHEN 325 MG TABLET PO ×2 (08:19→19:41)
[2017-10-28] MEDS: DOCUSATE 100 MG CAPSULE PO ×2 (08:20→21:22)
[2017-10-28] MEDS: FISH OIL 1,000 MG CAPSULE 1000 MG PO (08:20)
--- NOTE | 2017-10-28 10:16 | PM.PNPO.1 ---
Subjective Date Patient Seen: 10/28/17 Time Patient Seen: 10:16 Interval history: Hospital day 3, postop day 2 following L3-4, L4-5 revision hemilaminectomy, screw removal and posterior lateral fusion; L5-S1 TLIF, cage and posterior screw fixation L3-4 through L5-S1 by Dr. Ni. Patient states that her preoperative leg pain is improved. She does complain of difficulty with swallowing and feeling like food and liquids or sticking in her upper chest. Denies any coughing or gagging. Has been slowly progressing with physical therapy. She has not done any stairs yet. Pain controlled with oxycodone 15 mg q.3h and Tylenol. Patient does have stairs at home on [facility]. Exam Vital Signs (past 8 hours): - 10/28/17 07:10 Temperature 98.4 F Pulse Rate 64 Respiratory Rate 16 Blood Pressure 122/63 H Pulse Oximetry 98 Oxygen Delivery Method Room Air Oxygen Flow Rate 0 Narrative Exam Narrative: Alert, oriented in no acute distress sitting in chair. Back/Spine/Pelvis Back: other (Bulky dressing to lumbar spine is dry without drainage or inflammation.) Extrem General: other (No calf pain or swelling. Pulses symmetrical. Good sensation to touch the lower legs.) Objective Labs Result Diagrams: 10/27/17 05:16 Assessment & Plan Post-op Postoperative Procedures Operation Date: 10/26/17 07:45 Actual Procedures Side Surgeon p L5-S1 TLIF, L3-4,L4-5 Hardware Removal & L3-4,L4-5,L5-S1 PSF w/Instru Danielle Ni MD Assessment: 1. Status post L3-4, L4-5 revision hemilaminectomy, screw removal, posterior lateral fusion; L5-S1 TLIF, cage; L3-4 through L5-S1 posterior screw fixation 2. Swallow difficulty Plan: We will have speech therapy to swallow evaluation today. Patient will work with physical therapy more today to do stairs and strengthening. Anticipate discharge to home tomorrow to [facility] when she is more stable. Time Spent With Patient less than 15 minutes Quality VTE Deep Vein Thrombosis/Pulmonary Embolism Present on Admission: No
--- NOTE | 2017-10-28 10:22 | P.PN_ITS ---
Subjective Date Patient Seen: 10/28/17 Time Patient Seen: 10:16 Interval history: Hospital day 3, postop day 2 following L3-4, L4-5 revision hemilaminectomy, screw removal and posterior lateral fusion; L5-S1 TLIF, cage and posterior screw fixation L3-4 through L5-S1 by Dr. Ni. Patient states that her preoperative leg pain is improved. She does complain of difficulty with swallowing and feeling like food and liquids or sticking in her upper chest. Denies any coughing or gagging. Has been slowly progressing with physical therapy. She has not done any stairs yet. Pain controlled with oxycodone 15 mg q.3h and Tylenol. Patient does have stairs at home on [facility]. Exam Vital Signs (past 8 hours): - 10/28/17 07:10 Temperature 98.4 F Pulse Rate 64 Respiratory Rate 16 Blood Pressure 122/63 H Pulse Oximetry 98 Oxygen Delivery Method Room Air Oxygen Flow Rate 0 Narrative Exam Narrative: Alert, oriented in no acute distress sitting in chair. Back/Spine/Pelvis Back: other (Bulky dressing to lumbar spine is dry without drainage or inflammation.) Extrem General: other (No calf pain or swelling. Pulses symmetrical. Good sensation to touch the lower legs.) Objective Labs Result Diagrams: 10/27/17 05:16 Assessment & Plan Post-op Postoperative Procedures Operation Date: 10/26/17 07:45 Actual Procedures Side Surgeon p L5-S1 TLIF, L3-4,L4-5 Hardware Removal & L3-4,L4-5,L5-S1 PSF w/Instru Danielle Ni MD Assessment: 1. Status post L3-4, L4-5 revision hemilaminectomy, screw removal , posterior lateral fusion; L5-S1 TLIF, cage; L3-4 through L5-S1 posterior screw fixation 2. Swallow difficulty Plan: We will have speech therapy to swallow evaluation today. Patient will work with physical therapy more today to do stairs and strengthening. Anticipate discharge to home tomorrow to [facility] when she is more stable. Time Spent With Patient less than 15 minutes Quality VTE Deep Vein Thrombosis/Pulmonary Embolism Present on Admission: No
--- NOTE | 2017-10-28 10:30 | PT.IPTN ---
Current Diagnoses Other spondylosis with radiculopathy, lumbar region (10/26/17) Spinal stenosis, lumbar region without neurogenic claudication (10/26/17) Arthrodesis status (10/26/17) Surgery Performed Operation Date: 10/26/17 07:45 Actual Procedures p L5-S1 TLIF, L3-4,L4-5 Hardware Removal & L3-4,L4-5,L5-S1 PSF w/Instru - Danielle Ni MD Physical Therapy Treatment Note M2 PT-IP Current Condition Start: 10/26/17 17:31 Freq: NEEDED Status: Active Protocol: Document 10/27/17 12:40 RCC (Rec: 10/27/17 17:50 [facility] [id number]) Physical Therapy Current Condition Current Condition Evaluation Date 10/26/17 Treatment Diagnosis s/p TLIF and laminectomy; difficulty in walking Onset Date 10/26/17 Precautions Lumbar Precautions Log Roll No Twisting Limit Bending Lifting Restriction of 10 lbs Gait Belt above Incisional Area Weight Bearing Status Weight Bearing Status Weight Bear as Tolerated M3 PT-IP Subjective Start: 10/26/17 17:31 Freq: NEEDED Status: Active Protocol: Document 10/28/17 10:30 GGD (Rec: 10/28/17 10:35 GGD [id number]) Subjective Physical Therapy Visit Type Type Treatment Note Visit Start Time 09:50 Visit Stop Time 10:30 Total Visit Minutes 40 Number of FLAT FOLDER Visits 1 Physical Therapy Visit Comments Patient Comments Pt states she is ready to move . Therapy Pain Assessment Pain When Pain Assessed At Rest Pain Present Pain Present Pain Reported Location Back Intensity 5 Scale Used Numeric (1 - 10) M4 PT-IP Mobility and Gait Start: 10/26/17 17:31 Freq: NEEDED Status: Active Protocol: Document 10/28/17 10:30 GGD (Rec: 10/28/17 10:35 GGD [id number]) PT-Bed Mobility Assessment Rolling Type of Rolling Log Rolling Level of Assist Standby Assistance Supine to Sit Supine to Sit Standby Assistance Bedrails Sit to Supine Sit to Supine Standby Assistance Bedrails Scooting Scooting to Edge of Bed Independent PT-Transfer Assessment Sit to and From Stand Sit to and from Stand Contact Guard Assistance Use of Upper Extremities Equipment Transfer Assistive Device Gait Belt Front Wheeled Walker Transfers Transfer Destination Bed Gait Assessment Gait Gait Assistance Required: Contact Guard Assist Distance (Feet) (feet) 75 Assistive Devices Assistive Device Gait Belt Front Wheeled Walker Gait Deviations General Gait Pattern Decreased Stride Length Decreased Feet Clearance Factors Limiting Gait Function Factors Limiting Gait Function Decreased Strength Pain Stair Climbing Assessment Evaluation Level of Assist On Stairs Contact Guard Assistance Devices Stair Climbing Assistive Devices Straight Cane Technique/Endurance Stair Climbing Direction Ascend and Descend Stair Climbing Technique Step to Step Number of Steps Climbed 3 Query Text: Stair Climbing Set # Repetitions (reps) 1 Comments Stair Climbing Comments Pt need cues for step training , Family training with stairs. M5 PT-IP Objective Assessments Start: 10/26/17 17:31 Freq: NEEDED Status: Active Protocol: Document 10/26/17 14:50 AB (Rec: 10/26/17 17:43 AB [id number]) Orientation Orientation/Cognition Level of Alertness Alert Orientation Name Age Birthday Month Date Year Day of Week Place Situation Safety Awareness Decreased Safety Awareness Memory Description Short Term Impaired Gross Range of Motion Lower Extremity ROM Assessment Within Functional Limits Strength Lower Extremity Strength Assessment Within Functional Limits M6 PT-IP Treatment Start: 10/26/17 17:31 Freq: NEEDED Status: Active Protocol: Document 10/28/17 10:30 GGD (Rec: 10/28/17 10:35 GGD [id number]) Physical Therapy Treatment Education Education Provided Precautions Safety M7 PT-IP Assessment and Plan Start: 10/26/17 17:31 Freq: NEEDED Status: Active Protocol: Document 10/28/17 10:30 GGD (Rec: 10/28/17 10:35 GGD [id number]) PT Summary Assessment and Plan Summary Assessment Summary Pt improving with mobility. She is slow moving with bed mobility. She was safe and stable with stairs. Frequency of Treatment Frequency Of Treatment Twice a Day Treatment Plan Other Recommendations and Next Treatment gait, stair training, bed Focus mobility without bed rail, CG training. Recommendations To Nursing Amount of Assist Needed 1 Person Assist Discharge Recommendations PT Discharge Recommendations Home with Assistance
--- NOTE | 2017-10-28 11:05 | OT.IP.TRT ---
Current Diagnoses Other spondylosis with radiculopathy, lumbar region (10/26/17) Spinal stenosis, lumbar region without neurogenic claudication (10/26/17) Arthrodesis status (10/26/17) Surgery Performed Operation Date: 10/26/17 07:45 Actual Procedures p L5-S1 TLIF, L3-4,L4-5 Hardware Removal & L3-4,L4-5,L5-S1 PSF w/Instru - Danielle Ni MD Occupational Therapy Treatment Note M2 OT-IP Current Condition Start: 10/27/17 11:15 Freq: Status: Active Protocol: Document 10/27/17 11:16 [facility] (Rec: 10/27/17 11:37 [facility] [id number]) Occupational Therapy Current Condition Current Condition Evaluation Date 10/27/17 Treatment Diagnosis Lumbar stenosis Diagnosis Onset Date 10/26/17 Post Operative Precautions Lumbar Precautions Log Roll No Twisting Limit Bending Lifting Restriction of 10 lbs Gait Belt above Incisional Area Weight Bearing Status Weight Bearing Status Weight Bear as Tolerated M3 OT- IP Subjective and Pain Start: 10/27/17 11:15 Freq: Status: Active Protocol: Document 10/28/17 11:04 [facility] (Rec: 10/28/17 11:05 [facility] [id number]) OT- Subjective Occupational Therapy Visit Type Type Patient Refusal Notes Pt states not wanting to do OT at this time and states feels , buzzing left chest and just wants to rest. Pt also requesting prune juice, nursing notified.
--- NOTE | 2017-10-28 14:17 | PC.NURSE ---
1430 Pt doing well with log roll in bed, exiting the bed, ambulation w/use of walker. changed the dressing to low back incision site to a coversite today. Incision w/polo intact, clean & w/o any s/s complication. Order put in for Nursing to do a swallow eval. Observed Pt swllow here foods today w/o any cough or any difficulty, Pt inst to chew foods well, eat slowly. Observed Pt eating her salad, drink her juice, etc. nothing noted to be of a swallow issue.
--- NOTE | 2017-10-28 15:15 | SLP.IPNOTE ---
Swallow evaluation order received. Patient experienced episode of food feeling stuck in her chest earlier. She states symptoms have mostly resolved at this time. Verbal and written education provided to patient regarding post-extubation changes in swallowing. Patient instructed to follow up with her PCP if symptoms do not resolve in 1-2 weeks. Swallow eval order d/pedro.
[2017-10-28 15:30] VITALS: BP 115/54; PULSE 68; RESP 18; TEMP 36.4; O2SAT 96
--- NOTE | 2017-10-28 16:00 | PT.IPTN ---
Current Diagnoses Other spondylosis with radiculopathy, lumbar region (10/26/17) Spinal stenosis, lumbar region without neurogenic claudication (10/26/17) Arthrodesis status (10/26/17) Surgery Performed Operation Date: 10/26/17 07:45 Actual Procedures p L5-S1 TLIF, L3-4,L4-5 Hardware Removal & L3-4,L4-5,L5-S1 PSF w/Instru - Danielle Ni MD Physical Therapy Treatment Note M2 PT-IP Current Condition Start: 10/26/17 17:31 Freq: NEEDED Status: Active Protocol: Document 10/27/17 12:40 RCC (Rec: 10/27/17 17:50 RCC [email or web address]) Physical Therapy Current Condition Current Condition Evaluation Date 10/26/17 Treatment Diagnosis s/p TLIF and laminectomy; difficulty in walking Onset Date 10/26/17 Precautions Lumbar Precautions Log Roll No Twisting Limit Bending Lifting Restriction of 10 lbs Gait Belt above Incisional Area Weight Bearing Status Weight Bearing Status Weight Bear as Tolerated M3 PT-IP Subjective Start: 10/26/17 17:31 Freq: NEEDED Status: Active Protocol: Document 10/28/17 16:00 GGD (Rec: 10/28/17 16:21 GGD [id number]) Subjective Physical Therapy Visit Type Type Treatment Note Visit Start Time 15:30 Visit Stop Time 16:00 Total Visit Minutes 30 Number of DIRECTOR OF FIRST IMPRESSIONS Visits 2 Physical Therapy Visit Comments Patient Comments Pt states she would like to use the bathroom Therapy Pain Assessment Pain When Pain Assessed At Rest Pain Present Pain Present Pain Reported Location Back Intensity 5 Scale Used Numeric (1 - 10) M4 PT-IP Mobility and Gait Start: 10/26/17 17:31 Freq: NEEDED Status: Active Protocol: Document 10/28/17 16:00 GGD (Rec: 10/28/17 16:21 GGD [id number]) PT-Bed Mobility Assessment Rolling Type of Rolling Log Rolling Level of Assist Standby Assistance Supine to Sit Supine to Sit Standby Assistance Bedrails Sit to Supine Sit to Supine Standby Assistance Bedrails Scooting Scooting to Edge of Bed Independent PT-Transfer Assessment Sit to and From Stand Sit to and from Stand Contact Guard Assistance Use of Upper Extremities Equipment Transfer Assistive Device Gait Belt Front Wheeled Walker Transfers Transfer Destination Bed Toilet Gait Assessment Gait Gait Assistance Required: Contact Guard Assist Distance (Feet) (feet) 150 Assistive Devices Assistive Device Gait Belt Front Wheeled Walker Gait Deviations General Gait Pattern Decreased Stride Length Decreased Feet Clearance Factors Limiting Gait Function Factors Limiting Gait Function Decreased Strength Pain M5 PT-IP Objective Assessments Start: 10/26/17 17:31 Freq: NEEDED Status: Active Protocol: Document 10/26/17 14:50 AB (Rec: 10/26/17 17:43 AB [id number]) Orientation Orientation/Cognition Level of Alertness Alert Orientation Name Age Birthday Month Date Year Day of Week Place Situation Safety Awareness Decreased Safety Awareness Memory Description Short Term Impaired Gross Range of Motion Lower Extremity ROM Assessment Within Functional Limits Strength Lower Extremity Strength Assessment Within Functional Limits M6 PT-IP Treatment Start: 10/26/17 17:31 Freq: NEEDED Status: Active Protocol: Document 10/28/17 16:00 GGD (Rec: 10/28/17 16:21 GGD [id number]) Physical Therapy Treatment Education Education Provided Precautions Safety M7 PT-IP Assessment and Plan Start: 10/26/17 17:31 Freq: NEEDED Status: Active Protocol: Document 10/28/17 16:00 GGD (Rec: 10/28/17 16:21 GGD [id number]) PT Summary Assessment and Plan Summary Assessment Summary Pt improving with mobility and gait tolerance. She was safe with transfers and had good log roll. Frequency of Treatment Frequency Of Treatment Twice a Day Treatment Plan Other Recommendations and Next Treatment gait, stair training, bed Focus mobility without bed rail, CG training. Recommendations To Nursing Amount of Assist Needed 1 Person Assist Discharge Recommendations PT Discharge Recommendations Home with Assistance
[2017-10-28 19:37] VITALS: BP 123/68; PULSE 71; RESP 16; TEMP 36.8; O2SAT 98
[2017-10-28] MEDS: SENNOSIDES 8.6 MG TABLET 17.2 MG PO (21:22)
[2017-10-28] MEDS: MAGNESIUM OXIDE 400 MG TABLET PO (21:23)
[2017-10-28 23:30] VITALS: BP 126/71; PULSE 67; RESP 18; TEMP 36.7; O2SAT 97
--- NOTE | 2017-10-28 23:59 | PC.NURSE ---
Addendum entered by mEber Garber R.N. 10/29/17 05:04: Patient medicated at 0344 with 10mg Oxycodone + Vistaril for complaint of 5/10 burning back pain. Requested not to be awakened (if asleep) for 0500 Tylenol. Tylenol not given at this time as patient is sleeping. Original Note: Patient is alert and oriented. Breath sounds CTA with RA sat of 97%. HRR. Denies nausea. BT present and abdomen is soft. Denies urinary concerns. Is independent with bed mobility and able to get in/out of bed per self and ambulates to bathroom with walker and supervision. Coversite dressing to back intact with serous/serosanguinous shadow drainage noted. States pain is currently 4/10 but just recently had pain meds and declines ice pack. Non pitting, chronic bilateral LE edema. Wearing footie SCD's. Fall risk score now moderate but still having bed alarm on for safety.
[2017-10-29] MEDS: OXYCODONE IR 10 MG TABLET PO (03:44)
[2017-10-29] MEDS: hydrOXYzine pamoate 25 MG CAPSULE PO ×2 (03:44→11:23)
[2017-10-29 07:30] VITALS: BP 118/64; PULSE 65; RESP 18; TEMP 36.8; O2SAT 97
[2017-10-29] MEDS: OXYCODONE IR 5 MG TABLET 15 MG PO ×3 (08:05→14:25)
[2017-10-29] MEDS: FISH OIL 1,000 MG CAPSULE 1000 MG PO (08:22)
[2017-10-29] MEDS: DOCUSATE 100 MG CAPSULE PO (08:22)
[2017-10-29] MEDS: ACETAMINOPHEN 325 MG TABLET PO ×2 (08:22→14:25)
--- NOTE | 2017-10-29 09:18 | PC.NURSE ---
Elba has already been up in shower this AM. She is taking oral pain meds with adequate relief and anticipates D/C today to [facility]. accompanied by .VSS. Ortho status WDL except long-term numbness three toes on L. Otherwise states her pain is better now than it was pre-op.
--- NOTE | 2017-10-29 09:34 | OT.IP.TRT ---
Current Diagnoses Other spondylosis with radiculopathy, lumbar region (10/26/17) Spinal stenosis, lumbar region without neurogenic claudication (10/26/17) Arthrodesis status (10/26/17) Surgery Performed Operation Date: 10/26/17 07:45 Actual Procedures p L5-S1 TLIF, L3-4,L4-5 Hardware Removal & L3-4,L4-5,L5-S1 PSF w/Instru - Danielle Ni MD Occupational Therapy Treatment Note M2 OT-IP Current Condition Start: 10/27/17 11:15 Freq: Status: Active Protocol: Document 10/27/17 11:16 [facility] (Rec: 10/27/17 11:37 [facility] [id number]) Occupational Therapy Current Condition Current Condition Evaluation Date 10/27/17 Treatment Diagnosis Lumbar stenosis Diagnosis Onset Date 10/26/17 Post Operative Precautions Lumbar Precautions Log Roll No Twisting Limit Bending Lifting Restriction of 10 lbs Gait Belt above Incisional Area Weight Bearing Status Weight Bearing Status Weight Bear as Tolerated M3 OT- IP Subjective and Pain Start: 10/27/17 11:15 Freq: Status: Active Protocol: Document 10/29/17 09:28 [facility] (Rec: 10/29/17 09:34 [facility] [id number]) OT- Subjective Occupational Therapy Visit Type Type Treatment Note Visit Start Time 08:45 Visit Stop Time 09:25 Total Visit Minutes 40 Occupational Therapy Visit Comments Patient Comments Pt wanting to shower and ready to go home today. OT Pain Assessment Pain When Pain Assessed At Rest Pain Present Pain Present Pain Reported M4 OT- IP ADL's Start: 10/27/17 11:15 Freq: Status: Active Protocol: Document 10/29/17 09:28 [facility] (Rec: 10/29/17 09:34 [facility] [id number]) OT ADL-Grooming General Evaluation Grooming Ability Independent OT ADL-Dressing General Eval Upper Body Dressing Ability Independent Lower Body Dressing Ability Minimal Assistance Areas Needing Assistance Shoes Comments OT Dressing Comments Pt's will assist for needs at home. OT ADL-Bathing Bathing Type Bathing Type Shower General Evaluation Bathing Ability Minimal Assistance Areas Needing Assistance Wash/Dry Back Wash/Dry Perineal Area Comments OT Bathing Comments Pt has ordered toilet aid to assist for pericare and hygiene needs. M6 OT- IP Functional Cognition Start: 10/27/17 11:15 Freq: Status: Active Protocol: Document 10/29/17 09:28 [facility] (Rec: 10/29/17 09:34 [facility] [id number]) Cognitive Factors Limiting Selfcare Function Cognitive Ability Level of Alertness Alert Patient Orientation Name Place Situation Attention Span Ability Capable of Focused Attention Capable of Sustained Attention Ability to Follow Commands Able to Follow Multi-Step Commands Memory Description No Deficits Noted Safety Awareness Decreased Ability to Apply Precautions Cognitive Comments Cognitive Assessment Comments Pt able to recall precautions well, needing reminders to slow down. M7 OT- IP Mobility and Balance Start: 10/27/17 11:15 Freq: Status: Active Protocol: Document 10/29/17 09:28 [facility] (Rec: 10/29/17 09:34 [facility] [email or web address]) OT- Bed Mobility Assessment Rolling Type of Rolling Roll to Left Level of Assistance Independent Supine to Sit Supine to Sit Assist Independent Bedrails Sit to Supine Sit to Supine Assist Independent Bedrails OT-Transfer Assessment Sit to and From Stand Sit to and from Stand Standby Assistance Transfers Transfer Ability Standby Assistance Technique Transfer Destination Bed Shower Stall Transfer Technique Stand Step Pivot Devices Transfer Assistive Devices Gait Belt Front Wheeled Walker OT- Balance Assessment Sitting Balance and Reactions Static Sitting Balance Ability Normal Dynamic Sitting Balance Ability Normal Standing Balance and Reactions Static Standing Balance Ability Normal Dynamic Standing Balance Ability Good M8 OT- IP Objective Assessments Start: 10/27/17 11:15 Freq: Status: Active Protocol: Document 10/27/17 11:16 [facility] (Rec: 10/27/17 11:37 [facility] [id number]) OT Gross Range of Motion Upper Extremity Range of Motion Assessment Within Functional Limits OT Strength Upper Extremity Strength Assessment Within Functional Limits OT-Muscle Tone Assessment Muscle Tone WNL Yes M9 OT- IP Assessment and Plan Start: 10/27/17 11:15 Freq: Status: Active Protocol: Document 10/29/17 09:28 [facility] (Rec: 10/29/17 09:34 [facility] [id number]) OT Summary Assessment and Plan Summary Assessment Summary Pt doing well and to be going home with today. Frequency of Treatment Frequency Of Treatment Once a Day Discharge Recommendations OT Discharge Recommendations Home with Assistance Home Equipment Needs FWW
--- NOTE | 2017-10-29 11:46 | PT.IPTN ---
Current Diagnoses Other spondylosis with radiculopathy, lumbar region (10/26/17) Spinal stenosis, lumbar region without neurogenic claudication (10/26/17) Arthrodesis status (10/26/17) Surgery Performed Operation Date: 10/26/17 07:45 Actual Procedures p L5-S1 TLIF, L3-4,L4-5 Hardware Removal & L3-4,L4-5,L5-S1 PSF w/Instru - Danielle Ni MD Physical Therapy Treatment Note M2 PT-IP Current Condition Start: 10/26/17 17:31 Freq: NEEDED Status: Active Protocol: Document 10/27/17 12:40 [facility] (Rec: 10/27/17 17:50 [facility] [id number]) Physical Therapy Current Condition Current Condition Evaluation Date 10/26/17 Treatment Diagnosis s/p TLIF and laminectomy; difficulty in walking Onset Date 10/26/17 Precautions Lumbar Precautions Log Roll No Twisting Limit Bending Lifting Restriction of 10 lbs Gait Belt above Incisional Area Weight Bearing Status Weight Bearing Status Weight Bear as Tolerated M3 PT-IP Subjective Start: 10/26/17 17:31 Freq: NEEDED Status: Active Protocol: Document 10/29/17 11:45 GGD (Rec: 10/29/17 11:46 GGD [id number]) Subjective Physical Therapy Visit Type Type Patient Refusal Notes Pt states she is tired after showering this AM and is D/C today. She would like to rest and has no questions about mobility or transfers. Frequency of Treatment Frequency Of Treatment Twice a Day Treatment Plan Other Recommendations and Next Treatment gait, stair training, bed Focus mobility without bed rail, CG training. Recommendations To Nursing Amount of Assist Needed 1 Person Assist Discharge Recommendations PT Discharge Recommendations Home with Assistance
--- NOTE | 2017-10-29 13:52 | PM.DS.1 ---
History of Present Illness Date Patient Seen: 10/29/17 Time Patient Seen: 07:52 Chief complaint: L5-S1 TLIF L3-5 removal L3-4 see julieta notes/codes Narrative: Patient admitted for lumbar fusion Discharge Providers Date of admission: 10/26/17 06:55 Primary care physician: Phoenix De León MD Consults: 10/26/17 12:31 Consult to Occupational Therapy Evaluate & Treat Comment: Physician Instructions: Evaluate and treat Consult to Physical Therapy Evaluate & Treat Comment: Physician Instructions: Evaluate and Treat 10/28/17 14:15 Consult to Speech Therapy Evaluate & Treat Comment: Physician Instructions: Evaluate and treat Discharge provider: Nirmala Gibson PA-C Summary Discharge Diagnosis: Status post lumbar fusion Hospital Course: Elba was admitted for lumbar fusion, and she consented to procedure. On postop day number 3 she is feeling well want to go home. She is eating and voiding without difficulty or assistance. She was up and ambulating with physical therapy. She had some complaints of swallowing issues, and she worked with speech therapy. On day of discharge cover site dressing was applied. Calves are soft, compressible, nontender bilaterally. Status at Discharge Functional status at discharge: uses cane/walker Exam Vital Signs (past 8 hours): - 10/29/17 07:30 Temperature 98.3 F Pulse Rate 65 Respiratory Rate 18 Blood Pressure 118/64 Pulse Oximetry 97 Oxygen Delivery Method Room Air Oxygen Flow Rate 0 Narrative Exam Narrative: Patient lying in bed in no acute distress. She is alert and oriented x3. Dressing on back will be changed to cover site dressing. Calves are soft, compressible, nontender bilaterally. Sensation intact to light touch in her bilateral lower extremities. She is able to actively dorsiflex and plantar flex Her pain is well controlled with oxycodone. Denies any nausea, vomiting, or chest pain. Objective Labs Result Diagrams: 10/27/17 05:16 Discharge Plan Discharge Plan Patient Disposition: Home, Self-Care Discharge comment: Discharge home today with with cover site dressing on Discharge Med Rec/Prescriptions Prescriptions: New acetaminophen 325 mg Tablet 325 mg PO Q4HR Qty: 30 RF: 0 docusate sodium 100 mg Capsule 100 mg PO BID Qty: 30 RF: 0 hydroxyzine pamoate 25 mg Capsule 25 mg PO Q6HR Qty: 60 RF: 0 oxycodone 5 mg capsule 5 mg PO Q4-6H PRN (Reason: pain) Qty: 90 RF: 0 Continue multivitamin [Multiple Vitamins] 1 EACH tablet 1 tab PO QDAY Qty: 0 RF: 0 omega 5-dhc-wnd-fish oil [Fish Oil] 1,000 MG capsule 1,000 mg PO QDAY Qty: 0 RF: 0 vitamin B complex [B Complex-Vitamin B12] 1 EACH tablet 1 tab PO QDAY Qty: 0 RF: 0 cholecalciferol (vitamin D3) [Vitamin D3] 2,000 UNIT capsule 2,000 iu PO HS Qty: 0 RF: 0 magnesium oxide 400 MG capsule 400 mg PO HS Qty: 0 RF: 0 Discontinued oxycodone 5 mg Tablet 2.5 - 5 mg PO Q4-6H PRN (Reason: Pain) RF: 0 Follow up/Referrals: Danielle Ni MD [Physician] - (Follow-up in 10-14 days) Provider Discharge Instructions Diet: Diet as Tolerated Activity: No excessive bending, lifting, or twisting Cold/Heat Therapy: As needed Wound Care Report to your healthcare provider any signs of infection, such as:: chills, fever and increased pain Dressing: Cover site dressing in place for 10-14 days Visit Report/Discharge Packet Instructions: Oxycodone, Hydroxyzine, DI for Transforaminal Lumbar Interbody Fusion Visit Report Forms: Stroke Signs & Symptoms Discharge Data Primary Care Provider: Phoenix De León Attending Provider: Danielle Ni Admit Date/Time: 10/26/17 06:55 Quality VTE Deep Vein Thrombosis/Pulmonary Embolism Present on Admission: No
--- NOTE | 2017-10-29 14:37 | PC.NURSE ---
Elba was discharged via w.chair accompanied by at 1430 to POV with priority ferry loading pass. She was in stable condition. All Rx's already filled by . Elba verbalizes understanding of all disch. information and teaching. Extra Coversite drsg. given.
== END 2017-10-29 14:30 | disposition home or self-care (01) | DRG 454 ==
PROVIDERS: Admitting Provider Orthopaedic Surgery Orthopaedic Surgery of the Spine; Family Provider Family Medicine; PCP Family Medicine; Visit Provider Orthopaedic Surgery Orthopaedic Surgery of the Spine
PROC: 0SG30AJ Fusion of Lumbosacral Joint with Interbody Fusion Device, Posterior Approach, Anterior Column, Open Approach (ICD-10-PCS; principal; 2017-10-26 07:45)
DX: M43.16 Spondylolisthesis, lumbar region (principal); Z68.41 Body mass index [BMI] 40.0-44.9, adult; M96.0 Pseudarthrosis after fusion or arthrodesis; E66.01 Morbid (severe) obesity due to excess calories; Z98.1 Arthrodesis status; F17.210 Nicotine dependence, cigarettes, uncomplicated; M48.062 Spinal stenosis, lumbar region with neurogenic claudication; M48.07 Spinal stenosis, lumbosacral region; M47.27 Other spondylosis with radiculopathy, lumbosacral region; R13.10 Dysphagia, unspecified
CPT/HCPCS: 72100; 76001; 85014; 85018; 94762; 97116; 97161; 97165; 97530; 97535; C1776; A9270; C9290; J0330; J0690; J1100; J1170; J2250; J2405; J2704; J3010

== ENCOUNTER → 2019-01-11 08:32 | Outpatient (CLI) | payer MEDICARE, SELFPAY ==
[2017-10-26 12:59] VITALS: BMI 40.7
--- NOTE | 2019-01-11 | DI.US.S_ITS ---
PROCEDURE: US CAROTID DOPPLER BI INDICATIONS: FACIAL WEAKNESS TECHNIQUE: Color and pulse Doppler interrogation was performed of both carotid systems, with image documentation and velocity measurements. COMPARISON: None. FINDINGS: Stenosis calculations are based on SRU (Society of Radiologists in Ultras[employer]) criteria. Right side: Brachial blood pressure: 133/84 mm Hg. Common carotid artery peak systolic velocity: 86 cm/sec. Internal carotid artery peak systolic velocity: 76 cm/sec. Internal carotid artery end diastolic velocity: 31 cm/sec. External carotid artery peak systolic velocity: 101 cm/sec. ICA/CCA peak systolic ratio: 0.89. Barcenas scale imaging description: Calcified plaque in the bifurcation Percent internal carotid artery stenosis: Less than 50%. Vertebral artery: Flow direction is antegrade. Left side: Brachial blood pressure: 125/84 mm Hg. Common carotid artery peak systolic velocity: 91 cm/sec. Internal carotid artery peak systolic velocity: 111 cm/sec. Internal carotid artery end diastolic velocity: 40 cm/sec. External carotid artery peak systolic velocity: 80 cm/sec. ICA/CCA peak systolic ratio: 1.22. Barcenas scale imaging description: Scattered calcified plaque at the bifurcation Percent internal carotid artery stenosis: Less than 50%. Vertebral artery: Flow direction is antegrade. IMPRESSION: Bilateral less than 50% ICA stenoses. Dictated by: Du Bear M.D. on 01/11/2019 at 9:57 Approved by: Du Bear M.D. on 01/11/2019 at 9:59
== END ==
PROVIDERS: Family Provider Family Medicine; PCP Family Medicine; Visit Provider Family Medicine
DX: R29.810 Facial weakness (principal); I65.23 Occlusion and stenosis of bilateral carotid arteries
CPT/HCPCS: 93880

== ENCOUNTER → 2019-05-30 09:42 | Outpatient (CLI) | payer MEDICARE, SELFPAY ==
[2017-10-26 12:59] VITALS: BMI 40.7
--- NOTE | 2019-05-30 09:52 | DI.CT.S_ITS ---
PROCEDURE: CT LUMBAR SPINE WO CON INDICATIONS: Spondylolisthesis, lumbar region TECHNIQUE: Noncontrast 3 mm thick sections acquired from the T12 level to the sacrum. Sagittal and coronal reformats were constructed. For radiation dose reduction, the following was used: automated exposure control. COMPARISON: [facility], CR, XR LUMBAR SPINE 2-3V, 10/26/2017, 8:58. [facility], CR, L-SPINE 2-3 VIEWS, 04/30/2016, 9:43. [facility], CR, L-SPINE 2-3 VIEWS, 04/28/2012, 9:00. FINDINGS: Image quality: Excellent. Bones: No acute vertebral body compression fractures. No suspicious lytic or blastic bony lesions. A vertebral body hemangioma can be seen at the T12 level, as on series 6 image 29. Central spinal caliber is of normal overall caliber. No pars defects. Postoperative changes are seen, with bilateral pedicle screws at the L3-S1 levels. The screws appear well placed. Vertical fixation rods are seen. Disc spacers are seen at the L3-L4, L4-L5, and L5-S1 levels. There is mild lucency seen adjacent to the right S1 screw. No additional findings of hardware failure or hardware loosening are seen. There has been removal of portions of the posterior elements. T12-L1: No significant abnormality is seen. L1-L2: The disc height is well-preserved. Moderate disc bulge is seen, which is eccentric to the right side. Mild to moderate facet hypertrophy is seen. There is mild to moderate right-sided and mild left-sided neural foraminal narrowing seen. Mild central canal narrowing is seen. L2-L3: The disc height is well-preserved. Moderate disc bulge is seen, with a central disc protrusion. At least moderate facet hypertrophy is seen at this level. Mild bilateral neural foraminal narrowing is seen. Moderate to severe central canal narrowing is seen, as on series 3 image 40. L3-L4: There are postoperative changes seen at this level. Prominent right facet hypertrophy is seen. Prior left hemilaminectomy change is seen. There is mild to moderate right-sided and no significant left-sided neural foraminal narrowing seen. The central canal is widely patent. L4-L5: Postoperative change can be seen at this level. At least moderate disc bulge is seen. Moderate to prominent facet hypertrophy is seen. There is moderate to severe right-sided and moderate left-sided neural foraminal narrowing seen. Moderate central canal narrowing is seen. L5-S1: Postoperative changes can be seen at this level. Moderate to prominent disc osteophyte complex is seen, which is eccentric to the right side. There is moderate at least moderate facet hypertrophy seen. There is at least moderate right-sided and no significant left-sided neural foraminal narrowing seen. No significant central canal narrowing is seen. Soft tissues: No retroperitoneal masses or hematomas. Visualized aorta is normal in caliber. Atherosclerotic calcification is noted. Incidental note is made of a normal-appearing appendix. IMPRESSION: L3-S1 postoperative change. There is lucency seen adjacent right S1 screw. No additional findings of hardware failure or hardware loosening can be seen. Multiple levels of degenerative change are seen, including moderate to severe central canal narrowing at the L2-L3 level. Dictated by: Eulalio Porras M.D. on 05/30/2019 at 11:34 Approved by: Eulalio Porras M.D. on 05/30/2019 at 11:40
== END ==
PROVIDERS: Family Provider Family Medicine; PCP Family Medicine; Referring Provider Orthopaedic Surgery Orthopaedic Surgery of the Spine; Visit Provider Orthopaedic Surgery Orthopaedic Surgery of the Spine
DX: M47.816 Spondylosis without myelopathy or radiculopathy, lumbar region (principal); M43.16 Spondylolisthesis, lumbar region; M48.061 Spinal stenosis, lumbar region without neurogenic claudication
CPT/HCPCS: 72131

== ENCOUNTER → 2020-11-20 08:15 | Outpatient (CLI) | payer MEDICARE, OTHER, SELFPAY ==
[2017-10-26 12:59] VITALS: BMI 40.7
[2020-11-20 19:12] LABS: Add Manual Diff / Slide Review NO; Basophils Absolute Auto 0 /uL (0-100); Eosinophils Absolute Auto 100 /uL (0-450); Eosinophils Percent Auto 2.5 % (2-4); Hematocrit 40.9 % (36-46); Hemoglobin 13.4 g/dL (12.0-16.0); Lymphocytes Absolute Auto 2000 /uL (1100-4500); Lymphocytes Percent Auto 47.6 % (25-40); Mean Corpuscular HGB Conc 32.8 % (30-36); Mean Corpuscular Hemoglobin 32.4 PG (26-34); Mean Corpuscular Volume 98.5 fL (80-100); Monocytes Absolute Auto 400 /uL (0-900); Monocytes Percent Auto 10.1 % (3-14); Neutrophils Absolute Auto 1600 /uL (1500-7000); Neutrophils Percent Auto 38.8 % (50-75); Platelet Count 279 X10^3/uL (150-400); Red Blood Cell Count 4.15 X10^6/uL (4.0-5.2); Red Cell Distribution Width 12.9 % (11.6-14.8); White Blood Cell Count 4.2 X10^3/uL (4.5-11.0)
[2020-11-20 19:14] LABS: HEMOLYSIS < 15 (0-50); Iron 112 ug/dL (37-170)
[2020-11-20 19:19] LABS: Alanine Aminotransferase 26 IU/L (<35); Albumin 3.7 g/dL (3.5-5.0); Albumin Globulin Ratio 1.5 (1.0-2.8); Alkaline Phosphatase 67 U/L (38-126); Aspartate Aminotransferase 32 IU/L (14-36); BUN Creatinine Ratio 26.3 (6-22); Bilirubin Total 0.6 mg/dL (0.2-1.3); Blood Urea Nitrogen 15 mg/dL (7-17); Calcium 9.7 mg/dL (8.4-10.2); Carbon Dioxide 26 mmol/L (22-32); Chloride 106 mmol/L (98-107); Estimated Glomerular Filt Rate > 60.0 mL/min (>60); Globulin 2.5 g/dL (1.7-4.1); Glucose 109 mg/dL (80-110); HEMOLYSIS < 15 (0-50); Potassium 4.3 mmol/L (3.4-5.1); Sodium 137 mmol/L (137-145); Total Protein 6.2 g/dL (6.3-8.2); Uric Acid 5.6 mg/dL (2.5-6.2)
[2020-11-20 19:27] LABS: Percent Iron Saturation 42 % (15-50); Total Iron Binding Capacity 269 ug/dL (265-497); Transferrin 219 mg/dL (206-381)
[2020-11-20 19:37] LABS: Vitamin D 25 Hydroxy (D3) 43.8 ng/mL (30.0-100.0)
[2020-11-20 19:48] LABS: Thyroid Stimulating Hormone 4.08 uIU/mL (0.47-4.68)
[2020-11-20 20:09] LABS: Vitamin B12 404 pg/mL (239-931)
== END ==
PROVIDERS: Family Provider Family Medicine; PCP Family Medicine; Visit Provider Physician Assistant
DX: M54.9 Dorsalgia, unspecified (principal); R53.83 Other fatigue; E55.9 Vitamin D deficiency, unspecified; M79.10 Myalgia, unspecified site; R29.898 Other symptoms and signs involving the musculoskeletal system; E66.01 Morbid (severe) obesity due to excess calories; Z68.41 Body mass index [BMI] 40.0-44.9, adult
CPT/HCPCS: 80053; 82306; 82607; 83540; 83550; 84443; 84550; 85025; 86850; 86900; 86901

== ENCOUNTER → 2021-10-09 12:11 | Outpatient (CLI) | payer MEDICARE, OTHER, SELFPAY ==
[2017-10-26 12:59] VITALS: BMI 40.7
[2021-10-09 19:15] LABS: Add Manual Diff / Slide Review NO; Basophils Absolute Auto 0 /uL (0-100); Basophils Percent Auto 0.9 % (0-2); Eosinophils Absolute Auto 200 /uL (0-450); Eosinophils Percent Auto 3.3 % (2-4); Hematocrit 38.6 % (36-46); Hemoglobin 13.5 g/dL (12.0-16.0); Lymphocytes Absolute Auto 2000 /uL (1100-4500); Lymphocytes Percent Auto 44.2 % (25-40); Mean Corpuscular HGB Conc 35.1 % (30-36); Mean Corpuscular Hemoglobin 33.6 PG (26-34); Mean Corpuscular Volume 95.8 fL (80-100); Monocytes Absolute Auto 400 /uL (0-900); Monocytes Percent Auto 9.6 % (3-14); Neutrophils Absolute Auto 1900 /uL (1500-7000); Platelet Count 240 X10^3/uL (150-400); Red Blood Cell Count 4.03 X10^6/uL (4.0-5.2); Red Cell Distribution Width 13.5 % (11.6-14.8); White Blood Cell Count 4.6 X10^3/uL (4.5-11.0)
[2021-10-09 19:33] LABS: Blood Urea Nitrogen 17 mg/dL (7-17); Calcium 9.1 mg/dL (8.4-10.2); Carbon Dioxide 28 mmol/L (22-32); Chloride 105 mmol/L (98-107); Estimated Glomerular Filt Rate > 60 mL/min (>60); Glucose 101 mg/dL (80-110); HEMOLYSIS 20 (0-50); Potassium 4.2 mmol/L (3.4-5.1); Sodium 139 mmol/L (137-145)
[2021-10-09 19:34] LABS: Hemoglobin A1C% w Est Avg Glu 5.6 % (4.0-6.0)
[2021-10-09 19:56] LABS: TSH w/ Reflex to FT4 3.49 uIU/mL (0.47-4.68)
== END ==
PROVIDERS: Family Provider Family Medicine; PCP Physician Assistant; Visit Provider Family Medicine
DX: R73.9 Hyperglycemia, unspecified (principal); R53.83 Other fatigue; E66.01 Morbid (severe) obesity due to excess calories; M48.061 Spinal stenosis, lumbar region without neurogenic claudication; R06.00 Dyspnea, unspecified; R61 Generalized hyperhidrosis; Z13.1 Encounter for screening for diabetes mellitus; Z13.220 Encounter for screening for lipoid disorders; Z68.41 Body mass index [BMI] 40.0-44.9, adult; Z82.49 Family history of ischemic heart disease and other diseases of the circulatory system; Z98.1 Arthrodesis status
CPT/HCPCS: 80048; 83036; 84443; 85025

== ENCOUNTER → 2022-02-10 09:15 | Outpatient (CLI) | payer MEDICARE, OTHER, SELFPAY ==
[2017-10-26 12:59] VITALS: BMI 40.7
[2022-02-10 11:27] LABS: COVID19 -Nasal RAPID Negative (Negative)
--- NOTE | 2022-02-17 20:04 | DI.NM.S_ITS ---
DATE OF SERVICE: 02/10/2022 PROCEDURE PERFORMED: Pharmacologic vasodilator stress and rest myocardial perfusion imaging with gating to assess ejection fraction and regional wall motion. ORDERING PROVIDER: Dr. Pritesh Freed. INDICATIONS: The patient is a 71-year-old obese female with exertional dyspnea and a strong family history of coronary disease. CARDIAC STRESS: Per protocol, 0.4 mg of regadenoson was infused with a normal hemodynamic response and denied any anginal chest discomfort. She had mild dyspnea and nausea that spontaneously resolved. Her resting ECG shows sinus rhythm with occasional PVCs and diffuse, nonspecific ST and T-wave abnormalities that remained unchanged with pharmacologic stress. There were no other arrhythmias. Per protocol, 25.1 millicuries of technetium-99m Myoview was injected and she was imaged 10 minutes later using a gated SPECT acquisition protocol. Seven days prior, she had been injected with 26.4 millicuries of technetium-99m Myoview and was imaged 20 minutes later, again using a gated SPECT acquisition protocol. FINDINGS: 1. Raw data: There is fair myocardial tracer uptake with prominent breast shadows that clearly produce some attenuation, but there is no significant motion artifact. The lung/heart ratio is at the upper limits of normal at 0.41 with a normal TID ratio of 0.96. 2. Quantitated gated SPECT: Post-stress ejection fraction is 80% without any focal wall motion abnormality. Resting ejection fraction is 69% with a normal end- diastolic volume of 94 mL. 3. Myocardial perfusion imaging: Post-stress supine images showed a fairly normal myocardial perfusion pattern with a very subtle mid anterior defect that spares the apex and essentially resolves on prone imaging, most consistent with breast attenuation artifact. There are no other significant perfusion defects. The resting images show a similar perfusion pattern without any clear areas of improvement. IMPRESSION: 1. Normal myocardial perfusion study. 2. Subtle, fixed mid anterior defect that resolves on prone imaging, most consistent with breast attenuation artifact. There is no compelling evidence for myocardial ischemia or previous myocardial infarction. 3. Normal left ventricular systolic function without any focal wall motion abnormality. 4. No angina or ECG evidence of ischemia with pharmacologic vasodilator stress. There were occasional PVCs at rest but no arrhythmias with stress. Elba Emery - JAVIER/erich/denice doc#: [id number]/job#: [id number] dd: 02/17/2022 16:12:00 dt: 02/17/2022 19:21:00 DICTATING MD/COPIES TO: Pritesh Brewer MD COPIES MNE: GERARD;
== END ==
PROVIDERS: Family Provider Family Medicine; PCP Family Medicine; Referring Provider Family Medicine; Visit Provider Family Medicine
DX: R00.2 Palpitations (principal); R06.00 Dyspnea, unspecified; Z20.822 Contact with and (suspected) exposure to COVID-19; Z82.49 Family history of ischemic heart disease and other diseases of the circulatory system
CPT/HCPCS: 78452; 87635; 93017; A9502; J2785

== ENCOUNTER → 2022-02-16 06:59 | Outpatient (CLI) | payer MEDICARE, OTHER, SELFPAY ==
[2017-10-26 12:59] VITALS: BMI 40.7
[2022-02-16 20:26] LABS: COVID19 - ORCAS (NP or Nasal) Negative (Negative)
== END ==
PROVIDERS: Family Provider Family Medicine; PCP Family Medicine; Visit Provider Family Medicine
DX: Z20.822 Contact with and (suspected) exposure to COVID-19 (principal); Z01.812 Encounter for preprocedural laboratory examination
CPT/HCPCS: C9803; U0003

== ENCOUNTER → 2022-07-21 09:32 | Outpatient (CLI) | payer MEDICARE, OTHER, SELFPAY ==
[2017-10-26 12:59] VITALS: BMI 40.7
[2022-07-21 20:28] LABS: Alanine Aminotransferase 33 IU/L (<35); Albumin 3.9 g/dL (3.5-5.0); Albumin Globulin Ratio 1.6 (1.0-2.8); Alkaline Phosphatase 61 U/L (38-126); Aspartate Aminotransferase 34 IU/L (14-36); BUN Creatinine Ratio 17.9 (6-22); Bilirubin Total 0.8 mg/dL (0.2-1.3); Bilirubin Unconjugated 0.6 mg/dL (0.0-1.1); Blood Urea Nitrogen 12 mg/dL (7-17); Calcium 9.4 mg/dL (8.4-10.2); Carbon Dioxide 30 mmol/L (22-32); Chloride 104 mmol/L (98-107); Cholesterol 222 mg/dL (140-199); Estimated Glomerular Filt Rate > 60 mL/min (>60); Globulin 2.5 g/dL (1.7-4.1); Glucose 98 mg/dL (80-110); HDL Cholesterol 57 mg/dL (40-60); HEMOLYSIS < 15 (0-50); LDL Cholesterol Calculated 131 mg/dL (<100); Sodium 138 mmol/L (137-145); Total Protein 6.4 g/dL (6.3-8.2); Triglycerides 170 mg/dL (35-150)
[2022-07-21 20:53] LABS: TSH w/ Reflex to FT4 3.83 uIU/mL (0.47-4.68)
[2022-07-23 04:10] LABS: Labcorp Hemoglobin (Hb) A1c 5.6 % (4.8-5.6)
== END ==
PROVIDERS: Family Provider Family Medicine; PCP Physician Assistant Medical; Visit Provider Physician Assistant Medical
DX: E66.01 Morbid (severe) obesity due to excess calories (principal); R53.83 Other fatigue; R00.2 Palpitations; R03.0 Elevated blood-pressure reading, without diagnosis of hypertension; R73.9 Hyperglycemia, unspecified; Z68.41 Body mass index [BMI] 40.0-44.9, adult; R63.5 Abnormal weight gain
CPT/HCPCS: 80053; 80061; 80076; 83036; 84443

== ENCOUNTER → 2022-10-29 09:22 | Outpatient (CLI) | payer MEDICARE, OTHER, SELFPAY ==
[2017-10-26 12:59] VITALS: BMI 40.7
[2022-10-29 20:16] LABS: Add Manual Diff / Slide Review NO; Basophils Absolute Auto 0 /uL (0-100); Basophils Percent Auto 0.8 % (0-2); Eosinophils Absolute Auto 100 /uL (0-450); Eosinophils Percent Auto 2.6 % (2-4); Hematocrit 39.2 % (36-46); Hemoglobin 13.6 g/dL (12.0-16.0); Lymphocytes Absolute Auto 2000 /uL (1100-4500); Mean Corpuscular HGB Conc 34.7 % (30-36); Mean Corpuscular Hemoglobin 33.5 PG (26-34); Mean Corpuscular Volume 96.6 fL (80-100); Monocytes Absolute Auto 500 /uL (0-900); Monocytes Percent Auto 9.3 % (3-14); Neutrophils Absolute Auto 2900 /uL (1500-7000); Neutrophils Percent Auto 52.3 % (50-75); Platelet Count 226 X10^3/uL (150-400); Red Blood Cell Count 4.05 X10^6/uL (4.0-5.2); Red Cell Distribution Width 13.5 % (11.6-14.8); White Blood Cell Count 5.6 X10^3/uL (4.5-11.0)
[2022-10-29 20:33] LABS: Alanine Aminotransferase 31 IU/L (<35); Albumin 3.8 g/dL (3.5-5.0); Albumin Globulin Ratio 1.7 (1.0-2.8); Alkaline Phosphatase 71 U/L (38-126); Aspartate Aminotransferase 34 IU/L (14-36); Blood Urea Nitrogen 16 mg/dL (7-17); Calcium 9.5 mg/dL (8.4-10.2); Carbon Dioxide 26 mmol/L (22-32); Chloride 104 mmol/L (98-107); Cholesterol 155 mg/dL (140-199); Estimated Glomerular Filt Rate > 60 mL/min (>60); Globulin 2.2 g/dL (1.7-4.1); Glucose 98 mg/dL (80-110); HEMOLYSIS < 15 (0-50); Potassium 4.1 mmol/L (3.4-5.1); Sodium 136 mmol/L (137-145)
[2022-10-29 20:54] LABS: TSH w/ Reflex to FT4 3.42 uIU/mL (0.47-4.68)
[2022-10-29 21:28] LABS: HDL Cholesterol 61 mg/dL (40-60); LDL Cholesterol Calculated 76 mg/dL (<100); Triglycerides 90 mg/dL (35-150)
[2022-10-31 00:22] LABS: x Labcorp Estim. Avg Glu (eAG) 111 mg/dL (.); x Labcorp Hemoglobin A1c 5.5 % (4.8-5.6)
== END ==
PROVIDERS: Family Provider Family Medicine; PCP Physician Assistant Medical; Visit Provider Physician Assistant Medical
DX: E66.01 Morbid (severe) obesity due to excess calories (principal); R53.83 Other fatigue; R00.2 Palpitations; E78.00 Pure hypercholesterolemia, unspecified; Z68.41 Body mass index [BMI] 40.0-44.9, adult; R73.9 Hyperglycemia, unspecified; R63.5 Abnormal weight gain
CPT/HCPCS: 80053; 80061; 83036; 84443; 85025

== ENCOUNTER → 2023-04-22 09:49 | Outpatient (CLI) | payer MEDICARE, OTHER, SELFPAY ==
[2017-10-26 12:59] VITALS: BMI 40.7
[2023-04-22 19:06] LABS: Add Manual Diff / Slide Review NO; Basophils Absolute Auto 0 /uL (0-100); Basophils Percent Auto 0.9 % (0-2); Eosinophils Absolute Auto 100 /uL (0-450); Eosinophils Percent Auto 2.5 % (2-4); Hematocrit 42.4 % (36-46); Hemoglobin 14.3 g/dL (12.0-16.0); Lymphocytes Absolute Auto 1900 /uL (1100-4500); Lymphocytes Percent Auto 46.8 % (25-40); Mean Corpuscular HGB Conc 33.8 % (30-36); Mean Corpuscular Hemoglobin 32.6 PG (26-34); Mean Corpuscular Volume 96.4 fL (80-100); Monocytes Absolute Auto 400 /uL (0-900); Monocytes Percent Auto 8.8 % (3-14); Neutrophils Absolute Auto 1600 /uL (1500-7000); Platelet Count 238 X10^3/uL (150-400); Red Cell Distribution Width 13.1 % (11.6-14.8)
[2023-04-22 19:50] LABS: Alanine Aminotransferase 25 IU/L (<35); Albumin 4.1 g/dL (3.5-5.0); Albumin Globulin Ratio 1.9 (1.0-2.8); Alkaline Phosphatase 55 U/L (38-126); Aspartate Aminotransferase 33 IU/L (14-36); BUN Creatinine Ratio 20.3 (6-22); Bilirubin Total 1.2 mg/dL (0.2-1.3); Blood Urea Nitrogen 13 mg/dL (7-17); Calcium 9.9 mg/dL (8.4-10.2); Carbon Dioxide 28 mmol/L (22-32); Chloride 103 mmol/L (98-107); Cholesterol 175 mg/dL (140-199); Estimated Glomerular Filt Rate > 60 mL/min (>60); Globulin 2.2 g/dL (1.7-4.1); Glucose 96 mg/dL (80-110); HDL Cholesterol 65 mg/dL (40-60); HEMOLYSIS < 15 (0-50); LDL Cholesterol Calculated 92 mg/dL (<100); Potassium 4.4 mmol/L (3.4-5.1); Sodium 138 mmol/L (137-145); Total Protein 6.3 g/dL (6.3-8.2); Triglycerides 88 mg/dL (35-150)
[2023-04-22 20:14] LABS: TSH w/ Reflex to FT4 2.52 uIU/mL (0.47-4.68)
[2023-04-22 20:37] LABS: Hemoglobin A1C% w Est Avg Glu 5.4 % (4.0-6.0)
== END ==
PROVIDERS: Family Provider Family Medicine; PCP Physician Assistant Medical; Visit Provider Physician Assistant Medical
DX: Z79.899 Other long term (current) drug therapy (principal); M54.42 Lumbago with sciatica, left side; G89.29 Other chronic pain; E78.00 Pure hypercholesterolemia, unspecified; R73.9 Hyperglycemia, unspecified; F41.9 Anxiety disorder, unspecified; R23.8 Other skin changes; M54.16 Radiculopathy, lumbar region; M54.41 Lumbago with sciatica, right side
CPT/HCPCS: 80053; 80061; 83036; 84443; 85025

== ENCOUNTER → 2023-09-28 09:03 | Outpatient (CLI) | payer MEDICARE, OTHER, SELFPAY ==
[2017-10-26 12:59] VITALS: BMI 40.7
[2023-09-28 21:01] LABS: Hemoglobin A1C% w Est Avg Glu 5.4 % (4.0-6.0)
[2023-09-28 21:03] LABS: Alanine Aminotransferase 26 IU/L (<35); Albumin 4.3 g/dL (3.5-5.0); Alkaline Phosphatase 61 U/L (38-126); Aspartate Aminotransferase 35 IU/L (14-36); BUN Creatinine Ratio 18.8 (6-22); Bilirubin Total 1.1 mg/dL (0.2-1.3); Blood Urea Nitrogen 12 mg/dL (7-17); Calcium 9.6 mg/dL (8.4-10.2); Carbon Dioxide 31 mmol/L (22-32); Chloride 105 mmol/L (98-107); Cholesterol 161 mg/dL (140-199); Estimated Glomerular Filt Rate > 60 mL/min (>60); Globulin 2.1 g/dL (1.7-4.1); Glucose 98 mg/dL (80-110); HDL Cholesterol 81 mg/dL (40-60); HEMOLYSIS < 15 (0-50); LDL Cholesterol Calculated 66 mg/dL (<100); Sodium 139 mmol/L (137-145); Total Protein 6.4 g/dL (6.3-8.2); Triglycerides 71 mg/dL (35-150)
== END ==
PROVIDERS: Family Provider Family Medicine; PCP Physician Assistant Medical; Visit Provider Physician Assistant Medical
DX: R73.9 Hyperglycemia, unspecified (principal); E78.00 Pure hypercholesterolemia, unspecified; I10 Essential (primary) hypertension; M54.50 Low back pain, unspecified; G89.29 Other chronic pain; R29.898 Other symptoms and signs involving the musculoskeletal system; R26.89 Other abnormalities of gait and mobility; F41.9 Anxiety disorder, unspecified
CPT/HCPCS: 80053; 80061; 83036; 84443

== ENCOUNTER → 2024-01-26 11:39 | Outpatient (CLI) | payer MEDICARE, OTHER, SELFPAY ==
[2017-10-26 12:59] VITALS: BMI 40.7
[2024-01-26 20:31] LABS: Add Manual Diff / Slide Review NO; Basophils Absolute Auto 0 /uL (0-100); Basophils Percent Auto 0.5 % (0-2); Eosinophils Absolute Auto 100 /uL (0-450); Hematocrit 39.9 % (36-46); Hemoglobin 13.7 g/dL (12.0-16.0); Lymphocytes Absolute Auto 2200 /uL (1100-4500); Lymphocytes Percent Auto 38.5 % (25-40); Mean Corpuscular HGB Conc 34.4 % (30-36); Mean Corpuscular Hemoglobin 33.7 PG (26-34); Monocytes Absolute Auto 500 /uL (0-900); Neutrophils Absolute Auto 2800 /uL (1500-7000); Platelet Count 245 X10^3/uL (150-400); Red Blood Cell Count 4.07 X10^6/uL (4.0-5.2); Red Cell Distribution Width 12.9 % (11.6-14.8); White Blood Cell Count 5.6 X10^3/uL (4.5-11.0)
[2024-01-26 20:51] LABS: Alanine Aminotransferase 24 IU/L (<35); Albumin 3.8 g/dL (3.5-5.0); Albumin Globulin Ratio 1.7 (1.0-2.8); Alkaline Phosphatase 67 U/L (38-126); Aspartate Aminotransferase 33 IU/L (14-36); BUN Creatinine Ratio 23.5 (6-22); Bilirubin Total 0.6 mg/dL (0.2-1.3); Blood Urea Nitrogen 16 mg/dL (7-17); Carbon Dioxide 25 mmol/L (22-32); Chloride 103 mmol/L (98-107); Estimated Glomerular Filt Rate > 60 mL/min (>60); Globulin 2.3 g/dL (1.7-4.1); Glucose 99 mg/dL (80-110); HEMOLYSIS < 15 (0-50); Potassium 4.2 mmol/L (3.4-5.1); Sodium 134 mmol/L (137-145); Total Protein 6.1 g/dL (6.3-8.2)
== END ==
PROVIDERS: Family Provider Family Medicine; PCP Physician Assistant Medical; Visit Provider Physician Assistant Medical
DX: R25.2 Cramp and spasm (principal); I10 Essential (primary) hypertension
CPT/HCPCS: 80053; 85025

== ENCOUNTER → 2024-03-15 09:29 | Outpatient (CLI) | payer MEDICARE, OTHER, SELFPAY ==
[2017-10-26 12:59] VITALS: BMI 40.7
[2024-03-15 19:44] LABS: Hematocrit 42.3 % (36-46); Hemoglobin 14.3 g/dL (12.0-16.0); Mean Corpuscular Hemoglobin 33.5 PG (26-34); Mean Corpuscular Volume 98.6 fL (80-100); Platelet Count 230 X10^3/uL (150-400); Red Blood Cell Count 4.29 X10^6/uL (4.0-5.2); Red Cell Distribution Width 12.9 % (11.6-14.8); White Blood Cell Count 4.8 X10^3/uL (4.5-11.0)
[2024-03-15 19:58] LABS: Alanine Aminotransferase 25 IU/L (<35); Albumin 3.9 g/dL (3.5-5.0); Albumin Globulin Ratio 1.6 (1.0-2.8); Alkaline Phosphatase 63 U/L (38-126); Aspartate Aminotransferase 37 IU/L (14-36); Bilirubin Total 1.1 mg/dL (0.2-1.3); Blood Urea Nitrogen 14 mg/dL (7-17); Carbon Dioxide 30 mmol/L (22-32); Chloride 105 mmol/L (98-107); Cholesterol 173 mg/dL (140-199); Estimated Glomerular Filt Rate > 60 mL/min (>60); Globulin 2.4 g/dL (1.7-4.1); Glucose 93 mg/dL (80-110); HDL Cholesterol 79 mg/dL (40-60); HEMOLYSIS < 15 (0-50); LDL Cholesterol Calculated 81 mg/dL (<100); Sodium 136 mmol/L (137-145); Total Protein 6.3 g/dL (6.3-8.2); Triglycerides 63 mg/dL (35-150)
[2024-03-15 20:03] LABS: Hemoglobin A1C% w Est Avg Glu 5.2 % (4.0-6.0)
[2024-03-15 20:28] LABS: TSH w/ Reflex to FT4 3.72 uIU/mL (0.47-4.68)
== END ==
PROVIDERS: Family Provider Family Medicine; PCP Physician Assistant Medical; Visit Provider Physician Assistant Medical
DX: R73.9 Hyperglycemia, unspecified (principal); E78.00 Pure hypercholesterolemia, unspecified; R29.898 Other symptoms and signs involving the musculoskeletal system; F41.9 Anxiety disorder, unspecified
CPT/HCPCS: 80053; 80061; 83036; 84443; 85027

== ENCOUNTER → 2024-04-13 11:20 | Outpatient (CLI) | payer MEDICARE, OTHER, SELFPAY ==
[2017-10-26 12:59] VITALS: BMI 40.7
== END ==
PROVIDERS: Family Provider Family Medicine; PCP Physician Assistant Medical; Visit Provider Physician Assistant Medical
DX: Z01.89 Encounter for other specified special examinations (principal)
CPT/HCPCS: 86850; 86900; 86901

== ENCOUNTER → 2024-08-10 09:12 | Outpatient (CLI) | payer MEDICARE, OTHER, SELFPAY ==
[2017-10-26 12:59] VITALS: BMI 40.7
--- NOTE | 2024-08-10 09:48 | DI.MG.S_ITS ---
MM diagnostic mammo BI: 08/10/2024. BI-RADS: 1 CLINICAL: 74-year old female for bilateral diagnostic mammogram. Tyrer-Cuzick lifetime risk of 8.4%. No personal or first-degree family history of breast cancer. The patient reports pain (less than 1 month) in the left breast. PRIOR EXAMS: No prior examinations available. MAMMOGRAPHY TECHNIQUE: 2D and 3D (tomosynthesis) digital mammographic views obtained, with additional images as needed for full coverage. Current study was also evaluated with a Computer Aided Detection (CAD) system. DENSITY C. The breasts are heterogeneously dense, which may obscure small masses. MAMMOGRAPHY FINDINGS Right: No suspicious mass, asymmetry, microcalcification, or other abnormality seen. Left: There is no underlying mammographic correlate to the diffuse left breast pain. No suspicious mass, asymmetry, microcalcification, or other abnormality seen. IMPRESSION: * No evidence of malignancy. RECOMMENDATIONS Left * Diffuse, non-focal symptoms, such as pain or fullness are typically benign. Clinical follow-up is recommended, and further management of these symptoms should be based on the results of clinical evaluation. If diffuse symptoms persist or become more focal in nature, further clinical evaluation should be considered. Bilateral * Annual screening mammography. COMMENTS: Findings and recommendations were conveyed to the patient during today's evaluation. OVERALL ASSESSMENT CATEGORY BI-RADS-1: Negative. [employer] recommends annual screening mammography beginning at age 40 for women with average risk of breast cancer. ELECTRONICALLY SIGNED: Nandini Hess M.D. on 08/10/2024 at 11:13:22 AM PT Interpreting Station ID: [id number]
== END ==
PROVIDERS: Family Provider Family Medicine; PCP Physician Assistant Medical; Referring Provider Physician Assistant Medical; Visit Provider Physician Assistant Medical
DX: N64.4 Mastodynia (principal); R92.333 Mammographic heterogeneous density, bilateral breasts
CPT/HCPCS: 77066; G0279

== ENCOUNTER → 2025-01-25 09:35 | Outpatient (CLI) | payer MEDICARE, OTHER, SELFPAY ==
[2017-10-26 12:59] VITALS: BMI 40.7
[2025-01-25 18:55] LABS: Add Manual Diff / Slide Review NO; Hematocrit 39.9 % (36-46); Hemoglobin 13.8 g/dL (12.0-16.0); Lymphocytes Absolute Auto 2000 /uL (1100-4500); Mean Corpuscular HGB Conc 34.5 % (30-36); Mean Corpuscular Hemoglobin 33.6 PG (26-34); Mean Corpuscular Volume 97.4 fL (80-100); Platelet Count 217 X10^3/uL (150-400)
[2025-01-25 19:10] LABS: Alanine Aminotransferase 22 IU/L (<35); Albumin 4.1 g/dL (3.5-5.0); Albumin Globulin Ratio 1.8 (1.0-2.8); Alkaline Phosphatase 66 U/L (38-126); Blood Urea Nitrogen 17 mg/dL (7-17); Calcium 9.8 mg/dL (8.4-10.2); Carbon Dioxide 27 mmol/L (22-32); Chloride 106 mmol/L (98-107); Cholesterol 154 mg/dL (140-199); Estimated Glomerular Filt Rate > 60 mL/min (>60); Globulin 2.3 g/dL (1.7-4.1); Glucose 103 mg/dL (70-99); HDL Cholesterol 83 mg/dL (40-60); HEMOLYSIS < 15 (0-50); Potassium 4.2 mmol/L (3.4-5.1); Sodium 138 mmol/L (137-145); Total Protein 6.4 g/dL (6.3-8.2); Triglycerides 64 mg/dL (35-150)
[2025-01-25 19:14] LABS: Hemoglobin A1C% w Est Avg Glu 5.4 % (4.0-6.0)
[2025-01-25 19:38] LABS: TSH w/ Reflex to FT4 2.23 uIU/mL (0.47-4.68)
== END ==
PROVIDERS: Family Provider Family Medicine; PCP Physician Assistant Medical; Visit Provider Physician Assistant Medical
DX: Z01.89 Encounter for other specified special examinations (principal); R25.2 Cramp and spasm; R73.9 Hyperglycemia, unspecified; F41.9 Anxiety disorder, unspecified; I10 Essential (primary) hypertension; R20.0 Anesthesia of skin; H61.009 Unspecified perichondritis of external ear, unspecified ear; Z79.899 Other long term (current) drug therapy; M54.50 Low back pain, unspecified; M54.16 Radiculopathy, lumbar region; G89.29 Other chronic pain
CPT/HCPCS: 80053; 80061; 83036; 84443; 85025